=== PATIENT | female | born 1965 | race Caucasian/White ===

== ENCOUNTER 2020-04-16 14:25 | Emergency (ER) | payer MEDICAID, SELFPAY ==
[2020-04-16 14:39] VITALS: BP 191/98; PULSE 78; RESP 18; TEMP 36.1; O2SAT 97; BMI 39.6
--- NOTE | 2020-04-16 14:46 | XR_ITS ---
EXAMINATION: XR CHEST CLINICAL INFORMATION: Cough, fever COMPARISON: 03/15/2019 TECHNIQUE: Frontal view of the chest was obtained. FINDINGS: Lung volumes are slightly decreased from the prior study. There is subtly increased prominence to the pulmonary interstitium. No focal consolidation or mass. Normal heart size. Tortuous aorta. Degenerative changes of the shoulders and spine. XR/XR chest 1V IMPRESSION: There is subtly increased prominence to the pulmonary interstitium compared to the prior study. Although this could be bronchovascular crowding due to low lung volumes, subtle interstitial pneumonitis could be considered in the appropriate clinical setting.
--- NOTE | 2020-04-16 15:05 | ED.URI ---
HPI - URI/Sore Throat General Chief Complaint: Upper Respiratory Symptoms Stated Complaint: covid symptoms Time Seen by Provider: 04/16/20 14:45 Source: patient Mode of arrival: ambulatory Limitations: no limitations History of Present Illness HPI Narrative: 54 y/o female with history of HIV, hepatitis C, fibromyalgia, and HTN who presents with 5 days of dry cough and intermittent fevers. She states the cough is keeping her up at night. She has been taking cough syrup and using an albuterol inhaler without improvement. She states the symptoms started the day after she was outside in the cold rain. She thinks she has the flu. Her grandson had similar symptoms but is now much better. He was tested for COVID and was negative. She denies shortness of breath, difficulty breathing, chest pain, hemoptysis, abd pain, N/V, urinary symptoms. MD elicited complaint: fever and cough Pertinent past history: HIV Onset (ago): day(s) (5) Consistency: intermittent Severity: severe Able to tolerate fluids by mouth: Yes Exacerbating factors: nothing Relieving factors: nothing Context: sick contacts Associated symptoms: fever, chills, headache, sore throat and cough Treatments prior to arrival: none Related Data Previous Rx's Medication Instructions Recorded azithromycin [Zithromax Z-Cruz] See Rx Instructions .ROUTE 04/16/20 .COMPLEX #6 tab hydrocodone-homatropine 5 ml PO Q4-6H PRN #60 ml 04/16/20 prednisone 40 mg PO DAILY #10 tab 04/16/20 Allergies Allergy/AdvReac Type Severity Reaction Status Date / Time buspirone [From BUSPAR] Allergy Intermediate TACHYCARDIA Unverified 01/13/20 15:26 fluoxetine [From PROZAC] Allergy Intermediate FACIAL Unverified 01/13/20 15:26 NEURALGIA meloxicam Allergy Unknown Hives Verified 02/14/20 09:03 Review of Systems Review of Systems: Constitutional: + Fever, + Chills ENT/Mouth: No sore throat, No Rhinorrhea, No Swallowing Difficulty Eyes: No Eye Pain, No Swelling, No Redness Cardiovascular: No Chest Pain, No SOB, No Orthopnea, No Edema Respiratory: + Cough, No Sputum, + Wheezing, No dyspnea Gastrointestinal: No Nausea, No Vomiting, No Diarrhea, No abdominal Pain Genitourinary: No Dysuria, No Urinary Frequency, No Hematuria Musculoskeletal: No joint pain, + Myalgias Skin: No Skin Lesions, No rash Neuro: No Weakness, No Numbness, No Dizziness, + Headache Psych: No Anxiety/Panic, No Depression Heme/Lymph: No Bruising, No Lymphadenopathy Endocrine: No Polyuria, No Polydipsia PMFSH Past Medical History Attestation statement: The following information was validated with the patient. Medical History Depression HIV (human immunodeficiency virus infection) Hypercholesteremia Hypertension Social History Social History Advance Directives: No Advance Directives Information Provided: Yes Physical Exam Vital Signs: Vital Signs: Last Vital Signs Temp 97.0 F 04/16/20 14:39 Pulse 78 04/16/20 14:39 Resp 18 04/16/20 14:39 BP 191/98 H 04/16/20 14:39 Pulse Ox 97 04/16/20 14:39 Body Mass Index 39.6 Appearance: Alert. Oriented X3. No acute distress. Eyes: Pupils equal, round and reactive to light. ENT: Pharynx normal. Neck: Normal inspection. Neck supple. CVS: Normal heart rate and rhythm. Pulses normal. Respiratory: No respiratory distress. Coarse throughout with end expiratory wheeze in RML. No rhonchi Abdomen: Soft and nontender. +BS x4 Skin: Skin warm and dry. Normal skin color. Normal skin turgor. No rashes. Extremities: No lower extremity edema. Neuro: Oriented X 3. No motor deficit. No sensory deficit. Course Course Course Narrative: 54 y/o female with hx HIV on HAART presenting with intermittent fevers and non-productive cough x5 days. +sick contact who was found to be COVID negative. No hypoxia or resp distress but lung sounds coarse with mild wheeze, no hx COPD or asthma. Will check CXR and give dose of prednisone and anti-tussive now. Will get resp panel. Reevaluation(s) Reevaluation #1: Resp panel negative. Will treat for acute bronchitis. Stable for d/c with plan to f/u with PCP this week. MDM - URI/Sore Throat Lab Data Labs: Lab Results 04/16/20 Range/Units 15:11 Coronavirus (PCR) NEGATIVE (Negative) Influenza Type A (PCR) NEGATIVE (Negative) Influenza Type B (PCR) NEGATIVE (Negative) RSV RNA Qual (PCR) NEGATIVE (Negative) Discharge Plan Discharge Clinical Impression: Bronchitis Patient Disposition: Home, Self-Care Instructions: Acute Bronchitis (ED) Additional Instructions: You were tested for COVID-19, Influenza and RSV - all were NEGATIVE. You are being treated for bronchitis which is an inflammation of the airways. Take the medications as prescribed. Do not start taking the prednisone until tomorrow, you were given your 1st dose while in the ER today. Continue to use your albuterol inhaler as needed for wheezing. Follow up with your doctor this week. If you symptoms worsen of if you develop difficulty breathing, chest pain or any other concerning symptom call 911 or come back to the ER for further evaluation. Prescriptions: New azithromycin [Zithromax Z-Cruz] 250 mg tablet See Rx Instructions .ROUTE .COMPLEX Qty: 6 RF: 0 prednisone 20 mg tablet 40 mg PO DAILY Qty: 10 RF: 0 hydrocodone-homatropine 5-1.5 mg/5 mL syrup 5 ml PO Q4-6H PRN (Reason: cough) Qty: 60 RF: 0
[2020-04-16] MEDS: HYDROcodone/Homat 5/1.5/5 ML 5 ML SYRUP PO (15:58)
[2020-04-16] MEDS: predniSONE 20 MG TABLET 40 MG PO (15:58)
--- NOTE | 2020-04-16 15:59 | PC.NURSE ---
pt medicated per order
[2020-04-16 16:01] LABS: Influenza A PCR NEGATIVE (Negative); Influenza B PCR NEGATIVE (Negative); Resp Syncy Virus RNA Qual PCR NEGATIVE (Negative); SARS COV2 PCR INHOUSE NEGATIVE (Negative)
== END 2020-04-16 16:59 | disposition home or self-care (01) ==
PROVIDERS: Physician Assistant; Emergency Provider Emergency Medicine; PCP Family Medicine
DX: J20.9 Acute bronchitis, unspecified (principal); Z20.828 Contact with and (suspected) exposure to other viral communicable diseases; I10 Essential (primary) hypertension; B20 Human immunodeficiency virus [HIV] disease; B19.20 Unspecified viral hepatitis C without hepatic coma
CPT/HCPCS: 0241U; 71045; 99283

== ENCOUNTER 2020-11-23 11:41 | Outpatient (REF) | payer MEDICAID, SELFPAY ==
--- NOTE | ~2020-11-23 | XR_ITS ---
EXAMINATION: 1. RIGHT ANKLE. 2. RIGHT FOOT. CLINICAL INFORMATION: Pain in the ankle. Pain in the foot. COMPARISON: Right foot February 25, 2019 TECHNIQUE: 1. Right ankle. 3 views 2. Right foot. 3 views FINDINGS: 1. Right ankle. No fracture or dislocation. Ankle mortise is congruent. There are 2 small ossified bone densities inferior to the lateral malleolus which are chronic. 2. Right foot. Prominent calcaneal spur measuring about 1 cm. There are 2 orthopedic screws in the head of the second metatarsal. No acute abdomen only. No fracture or bone destruction. No focal bone lesion or abnormal periosteal reaction. Joint spaces are normal. XR/XR foot RT min 3V IMPRESSION: 1. Right ankle. Normal right ankle. 2. Right foot. Prominent calcaneal spur. Postop changes head of second metatarsal. No acute abnormality of the right foot.
--- NOTE | ~2020-11-23 | XR_ITS ---
EXAMINATION: 1. RIGHT ANKLE. 2. RIGHT FOOT. CLINICAL INFORMATION: Pain in the ankle. Pain in the foot. COMPARISON: Right foot February 25, 2019 TECHNIQUE: 1. Right ankle. 3 views 2. Right foot. 3 views FINDINGS: 1. Right ankle. No fracture or dislocation. Ankle mortise is congruent. There are 2 small ossified bone densities inferior to the lateral malleolus which are chronic. 2. Right foot. Prominent calcaneal spur measuring about 1 cm. There are 2 orthopedic screws in the head of the second metatarsal. No acute abdomen only. No fracture or bone destruction. No focal bone lesion or abnormal periosteal reaction. Joint spaces are normal. XR/XR ankle RT min 3V IMPRESSION: 1. Right ankle. Normal right ankle. 2. Right foot. Prominent calcaneal spur. Postop changes head of second metatarsal. No acute abnormality of the right foot.
== END 2020-11-23 11:42 | disposition home or self-care (01) ==
LOC: HO.XRAY 11:41
PROVIDERS: Absent Provider Nurse Practitioner Family; PCP Nurse Practitioner Family; Visit Provider Emergency Medicine
DX: M25.571 Pain in right ankle and joints of right foot (principal); M79.671 Pain in right foot
CPT/HCPCS: 73610; 73630

== ENCOUNTER 2020-11-25 09:25 | Emergency (ER) | payer MEDICAID, SELFPAY ==
[2020-11-25 09:32] VITALS: BP 139/45; PULSE 72; RESP 12; TEMP 36.9; O2SAT 98; BMI 36.8
--- NOTE | 2020-11-25 09:51 | ED.LOWEXIN ---
HPI - Extremity Injury (Lower) General Chief Complaint: Extremity Injury, Lower Stated Complaint: heel injury Time Seen by Provider: 11/25/20 09:51 Source: patient and medical interpreter Mode of arrival: ambulatory Limitations: no limitations History of Present Illness HPI Narrative: 55 yo female R heel pain has calcaneal spur noted on xray 11/23 comes in with pain with walking complaint: other (heel pain) Onset (ago): week(s) (1) Injury: Right: foot Place: home Severity: moderate Relieving factors: nothing Exacerbating factors: weight bearing, movement and palpation Context: other (no trauma ) Associated symptoms: able to partially bear weight Other symptoms: none Treatments prior to arrival: other (diclofenac topical ) Related Data Previous Rx's Medication Instructions Recorded azithromycin 250 mg tablet See Rx Instructions .ROUTE 04/16/20 (Zithromax Z-Cruz) .COMPLEX #6 tab hydrocodone-homatropine 5 mg-1.5 5 ml PO Q4-6H PRN #60 ml 04/16/20 mg/5 mL oral syrup prednisone 20 mg tablet 40 mg PO DAILY #10 tab 04/16/20 hydrocodone 5 mg-acetaminophen 325 1 tab PO Q6H PRN #8 tab 11/25/20 mg tablet prednisone 20 mg tablet 40 mg PO DAILY 3 Days #6 tab 11/25/20 Allergies Allergy/AdvReac Type Severity Reaction Status Date / Time buspirone [From BUSPAR] Allergy Intermediate TACHYCARDIA Unverified 01/13/20 15:26 fluoxetine [From PROZAC] Allergy Intermediate FACIAL Unverified 01/13/20 15:26 NEURALGIA meloxicam Allergy Unknown Hives Verified 02/14/20 09:03 Review of Systems Review of Systems: Constitutional : No Fever, No Chills ENT/Mouth : No Ear Pain, No Hoarseness Eyes: No Eye Pain, No Swelling, No Redness Cardiovascular : No Chest Pain, No SOB Respiratory : No Cough, No Dyspnea Gastrointestinal : No Nausea, No Vomiting, No Diarrhea Genitourinary : No Dysuria, No Hematuria Musculoskeletal : positive joint pain, No Myalgias, No Joint Swelling Skin : No Skin lacerations, No rash Neuro : No Weakness, No Numbness PMFSH Past Medical History Attestation statement: The following information was validated with the patient. Medical History Depression HIV (human immunodeficiency virus infection) Hypercholesteremia Hypertension Social History Social History (Updated 11/25/20 @ 10:02 by Alexa Fernandez DO) Patient Tobacco Use Status: Current everyday Tobacco user Use of substances other than those prescribed or required for medical reasons: No Physical Exam Vital Signs: Vital Signs: Last Vital Signs Temp 98.4 F 11/25/20 09:32 Pulse 72 11/25/20 09:32 Resp 12 11/25/20 09:32 BP 139/45 L 11/25/20 09:32 Pulse Ox 98 11/25/20 09:32 Body Mass Index 36.8 Appearance: Alert. Oriented X3. No acute distress. Eyes: Pupils equal, round and reactive to light. ENT: Pharynx normal. Neck: Normal inspection. Neck supple. CVS: Normal heart rate and rhythm. Pulses normal. Respiratory: No respiratory distress. Breath sounds normal. Abdomen: Soft and nontender. Skin: Skin warm and dry. Normal skin color. Normal skin turgor. Extremities: No lower extremity edema. R foot NV intact, skin intact, pos ttp with mild swelling on calcaneal area Neuro: Oriented X 3. No motor deficit. No sensory deficit. Procedures Orthopedic Splinting/Casting Injury #1: Side: right Lower Extremity Injury Location: foot Lower Extremity Immobilizer: boot orthosis MDM - Extremity Injury (Lower) MDM Narrative Medical decision making narrative: 55 yo female R heel pain has calcaneal spur noted on xray 11/23 comes in with pain with walking at this time will place in padded walking boot for comfort and start on oral medications for pain, refer to ortho clinic for possible steroid injections Discharge Plan Discharge Clinical Impression: Calcaneal spur Qualifiers: Laterality: right Qualified Code(s): M77.31 - Calcaneal spur, right foot Patient Disposition: Home, Self-Care Instructions: Heel Spur (ED) Additional Instructions: return to ED for any worsening symptoms or concerns wear walking boot for comfort as needed no longer than 7 days Prescriptions: New hydrocodone-acetaminophen 5-325 mg tablet 1 tab PO Q6H PRN (Reason: pain) Qty: 8 RF: 0 prednisone 20 mg tablet 40 mg PO DAILY 3 Days Qty: 6 RF: 0 No Action azithromycin [Zithromax Z-Cruz] 250 mg tablet See Rx Instructions .ROUTE .COMPLEX Qty: 6 RF: 0 prednisone 20 mg tablet 40 mg PO DAILY Qty: 10 RF: 0 hydrocodone-homatropine 5-1.5 mg/5 mL syrup 5 ml PO Q4-6H PRN (Reason: cough) Qty: 60 RF: 0 Referrals: Zoraida Sanderson PA-C [Physician Mobile [employer] Operator] - 1 week Print Language: Palauan
[2020-11-25] MEDS: HYDROcodone Bit/Acetam 5/325 TABLET 1 TAB PO (10:03)
== END 2020-11-25 10:47 | disposition home or self-care (01) ==
LOC: HO.ED 10:18
PROVIDERS: Emergency Provider Emergency Medicine
DX: M77.31 Calcaneal spur, right foot (principal); M79.671 Pain in right foot; B20 Human immunodeficiency virus [HIV] disease; I10 Essential (primary) hypertension; E78.00 Pure hypercholesterolemia, unspecified; F17.210 Nicotine dependence, cigarettes, uncomplicated
CPT/HCPCS: 99283; 99284

== ENCOUNTER 2021-01-26 09:55 | Outpatient (REF) | payer MEDICAID, SELFPAY ==
[2021-01-26 17:17] LABS: Urine Cytology See Pathology rpt
== END 2021-01-26 09:56 | disposition home or self-care (01) ==
LOC: HO.LAB 09:55
DX: R31.29 Other microscopic hematuria (principal); R32 Unspecified urinary incontinence
CPT/HCPCS: 51798; 88112; 99202

== ENCOUNTER 2021-02-19 12:40 | Emergency (ER) | payer MEDICAID, SELFPAY ==
[2021-02-19 13:13] VITALS: BP 162/94; PULSE 77; RESP 16; TEMP 36.8; O2SAT 98; BMI 36.5
--- NOTE | 2021-02-19 14:05 | ED.GENADULT ---
HPI - General Adult General Chief complaint: General Medical Stated complaint: flu symptons Time Seen by Provider: 02/19/21 15:18 Source: patient Mode of arrival: ambulatory Limitations: no limitations History of Present Illness HPI narrative: PATIENT PRESENTS TO ED TO BE TESTED FOR COVID. PATIENT WAS EXPOSED TO COVID POSITIVE FAMILY MEMBERS OVER THE WEEKEND. PATIENT IS ASYMPTOMATIC. PATIENT STATES HER GRANDSON WAS WITH HER AND NOW HAVING SYMPTOMS. Related Data Home Medications Medication Instructions Recorded Confirmed cholecalciferol (vitamin D3) 50 50 mcg PO DAILY 01/26/21 mcg (2,000 unit) tablet tramadol 50 mg tablet 50 mg PO Q8H PRN 01/26/21 zolpidem 10 mg tablet 10 mg PO BEDTIME PRN 01/26/21 Previous Rx's Medication Instructions Recorded azithromycin 250 mg tablet See Rx Instructions .ROUTE 04/16/20 (Zithromax Z-Cruz) .COMPLEX #6 tab hydrocodone-homatropine 5 mg-1.5 5 ml PO Q4-6H PRN #60 ml 04/16/20 mg/5 mL oral syrup prednisone 20 mg tablet 40 mg PO DAILY #10 tab 04/16/20 hydrocodone 5 mg-acetaminophen 325 1 tab PO Q6H PRN #8 tab 11/25/20 mg tablet prednisone 20 mg tablet 40 mg PO DAILY 3 Days #6 tab 11/25/20 terazosin 1 mg capsule 1 mg PO BEDTIME 30 Days #30 cap 01/26/21 Allergies Allergy/AdvReac Type Severity Reaction Status Date / Time buspirone [From BUSPAR] Allergy Intermediate TACHYCARDIA Verified 01/26/21 10:11 fluoxetine [From PROZAC] Allergy Intermediate FACIAL Verified 01/26/21 10:11 NEURALGIA meloxicam Allergy Unknown Hives Verified 01/26/21 10:11 Review of Systems Review of Systems: Yes all other systems are reviewed and are negative Constitutional: Constitutional: Reports as per HPI and Reports no additional constitutional complaints Eyes: Eyes: Reports as per HPI and Reports no additional eye complaints ENT: Reports system reviewed and no additional complaints, except as documented and Reports as per HPI Cardiovascular: Cardiovascular: Reports as per HPI and Reports no additional cardiovascular complaints Respiratory: Respiratory: Reports as per HPI and Reports no additional respiratory complaints Gastrointestinal: Gastrointestinal: Reports as per HPI and Reports no additional gastrointestinal complaints Genitourinary: Genitourinary: Reports no additional female genitourinary complaints and Reports as per HPI Musculoskeletal: Musculoskeletal: Reports no additional musculoskeletal complaints and Reports as per HPI Neurologic: Reports system reviewed and no additional complaints, except as documented and Reports as per HPI Psychiatric: Psychiatric: Reports no additional psychiatric complaints and Reports as per HPI [facility] Past Medical History Medical History Depression HIV (human immunodeficiency virus infection) Hypercholesteremia Hypertension Urinary incontinence Social History Social History Patient Tobacco Use Status: Current everyday Tobacco user Advance Directives: Yes Advance Directives Information Provided: Yes Advance Directives on File: No Patient : No Physical Exam Vital Signs: Vital Signs: Last Vital Signs Temp 98.2 F 02/19/21 13:13 Pulse 77 02/19/21 13:13 Resp 16 02/19/21 13:13 BP 162/94 H 02/19/21 13:13 Pulse Ox 98 02/19/21 13:13 Body Mass Index 36.5 Const: General: cooperative, healthy appearing, comfortable, no acute distress, well developed, alert, awake and Physically active Orientation/consciousness: oriented to time and patient oriented x3 HENMT: Head: Yes normal to inspection, Yes No palpable skull fracture present, Yes normocephalic, Yes atraumatic and No abrasion Eyes: General: appearance normal, both eyes and all related structures Neck: Neck: Yes normal visual inspection, Yes full ROM, Yes no lymphadenopathy, Yes no meningeal signs, Yes trachea midline, Yes supple and No tender Chest: Chest palpation & inspection: normal inspection of the chest and normal palpation of entire chest wall Resp: Effort & Inspection: normal respiratory effort and able to speak in complete sentences Auscultation: clear to auscultation bilaterally Cardio: Jugular venous distension: no JVD Heart sounds: S1 normal heart sound present and S2 normal heart sound present GI: Inspection: Yes normal to inspection and No abdominal wall ecchymosis Palpation (GI): Soft to palpation, not firm, nontender, no guarding and not rigid : General: No CVA tenderness and Yes no CVA tenderness Back/Spine/Pelvis: Back: no CVA tenderness, No CVA tenderness and No back tenderness Skin: General skin exam: no rashes or lesions noted and elasticity normal Neuro: General: oriented to time, patient oriented x3, gait normal, no meningeal signs and CN's II-XI intact bilaterally Cranial nerves: Yes CN's II-XII intact bilaterally Extrem: General: Yes normal to inspection and Yes full ROM Psych: Appearance: grossly normal, well kempt and not disheveled Course Course Course Narrative: PATIENT WILL HAVE COVID SWAB. Reevaluation(s) Reevaluation #1: COVID swab, influenza, RSV negative Time: 15:18 Medical Decision Making MDM Narrative Medical decision making narrative: Normal exam Lab Data Labs: Lab Results 02/19/21 Range/Units 13:39 Coronavirus (PCR) NEGATIVE (Negative) Influenza Type A (PCR) NEGATIVE (Negative) Influenza Type B (PCR) NEGATIVE (Negative) RSV RNA Qual (PCR) NEGATIVE (Negative) Discharge Plan Discharge Clinical Impression: Normal exam Patient Disposition: Home, Self-Care Instructions: Normal Exam (ED) Additional Instructions: Return to the ED immediately for any chest pain, shortness of breath, weakness, dizziness, or any other concerning symptoms. Prescriptions: No Action azithromycin [Zithromax Z-Cruz] 250 mg tablet See Rx Instructions .ROUTE .COMPLEX Qty: 6 RF: 0 prednisone 20 mg tablet 40 mg PO DAILY Qty: 10 RF: 0 hydrocodone-homatropine 5-1.5 mg/5 mL syrup 5 ml PO Q4-6H PRN (Reason: cough) Qty: 60 RF: 0 hydrocodone-acetaminophen 5-325 mg tablet 1 tab PO Q6H PRN (Reason: pain) Qty: 8 RF: 0 prednisone 20 mg tablet 40 mg PO DAILY 3 Days Qty: 6 RF: 0 terazosin 1 mg capsule 1 mg PO BEDTIME 30 Days Qty: 30 RF: 3 Interventions: ED Discharge Assessment Last Done: 02/19/21 15:32 Discharge Date/Time: 02/19/21 15:32 Print Language: Citizen [place]
[2021-02-19 15:07] LABS: Influenza A PCR NEGATIVE (Negative); Influenza B PCR NEGATIVE (Negative); Resp Syncy Virus RNA Qual PCR NEGATIVE (Negative); SARS COV2 PCR INHOUSE NEGATIVE (Negative)
== END 2021-02-19 15:32 | disposition home or self-care (01) ==
PROVIDERS: Physician Assistant; Emergency Provider Emergency Medicine
DX: Z71.1 Person with feared health complaint in whom no diagnosis is made (principal); Z20.822 Contact with and (suspected) exposure to COVID-19
CPT/HCPCS: 0241U; 36415; 99283

== ENCOUNTER → 2021-09-03 11:18 | Outpatient (BNVA) | payer MEDICAID, SELFPAY | PROVIDERS: PCP Family Medicine; Referring Provider Family Medicine; Visit Provider Internal Medicine Gastroenterology | DX: R79.89 Other specified abnormal findings of blood chemistry (principal); K74.60 Unspecified cirrhosis of liver | CPT/HCPCS: 99202 ==

== ENCOUNTER 2021-09-27 09:10 | Outpatient (REF) | payer MEDICAID, SELFPAY ==
[2021-09-27 09:46] LABS: MANUAL DIFF FLAG NO
[2021-09-27 10:07] LABS: Basophils Percent Auto 0.3 % (0-2); Eosinophils Absolute Auto 0.1 X10*3/uL (0.0-0.4); Eosinophils Percent Auto 1.6 % (0-4); Hematocrit 41.6 % (37.0-47.0); Hemoglobin 14.2 g/dl (12.0-16.0); Imm Gran Abs Auto 0.02 X10*3/uL (0.00-0.03); Imm Gran Pct Auto 0.3 % (0.0-0.4); Lymphocytes Absolute Auto 2.3 X10*3/uL (1.2-4.9); Lymphocytes Percent Auto 31.1 % (20-40); Mean Corpuscular HGB Conc 34.1 g/dl (31.0-35.0); Mean Corpuscular Hemoglobin 29.7 pg (27.0-33.0); Mean Platelet Volume 11.8 fL (9.4-12.3); Monocytes Absolute Auto 0.6 X10*3/uL (0.1-1.2); Monocytes Percent Auto 7.6 % (2-11); Neutrophils Absolute Auto 4.4 x10*3/uL (2.0-8.3); Neutrophils Percent Auto 59.1 % (45-73); Platelet Count 193 X10*3/uL (160-400); Red Blood Count 4.78 X10*6/uL (4.20-5.50); Red Cell Distribution Width 12.6 % (11.0-16.0); White Blood Count 7.4 X10*3/uL (4.8-10.8)
[2021-09-27 10:09] LABS: Prothrombin Time 11.4 SEC (9.9-13.0)
[2021-09-27 10:28] LABS: Alanine Aminotransferase 15 U/L (0-31); Albumin Level 4.3 g/dL (3.5-5.0); Alkaline Phosphatase 141 U/L (39-117); Anion Gap 11 (12-20); Aspartate Amino Transferase 16 U/L (5-31); Bilirubin Total 0.4 mg/dL (0.0-1.0); Blood Urea Nitrogen 13 mg/dL (9-16); Calcium 9.8 mg/dL (8.4-10.2); Carbon Dioxide 25 mmol/L (22-29); Chloride 107 mmol/L (96-108); Estimated Glomerular Filt Rate > 60; Glucose Random 95 mg/dL (60-115); Sodium 139 mmol/L (135-145); Total Protein 7.7 g/dL (6.5-8.0)
[2021-09-27 10:49] LABS: Ferritin 217 ng/mL (10-250); TSH reflex Free T4 3.54 uIU/mL (0.32-4.0); Vitamin D 25-OH Total 16.9 ng/mL (>30)
[2021-09-27 10:50] LABS: HBS Num1 3.84 mIU/mL (0-7.99); HBc Num1 0.06 S/CO (0.00-0.79); HBsAGNum1 0.22 S/CO (0.00-0.99); Hepatitis B Core Antibody Nonreactive (Nonreactive); Hepatitis B Surface Antigen Negative (Negative); ~HepC Num1 11.06 S/CO (0.00-0.79); ~Hepatitis B Surface Antibody NONREACTIVE (Nonreactive); ~Hepatitis C Antibody Reactive (Nonreactive)
[2021-09-27 11:02] LABS: Folate 13.1 ng/mL (> or = 4.0); Vitamin B12 444 pg/mL (200-900)
[2021-09-28 08:09] LABS: Hepatitis A Antibody IgM 0.15 Index (0-0.79); ~Hepatitis A Antibody IgM Nonreactive (Nonreactive)
[2021-09-29 14:22] LABS: Immunoglobulin G 1386 mg/dL (600-1640)
[2021-09-29 14:26] LABS: Alpha 1 Anti-trypsin 167 mg/dL (83-199); Ceruloplasmin 36 mg/dL (18-53)
[2021-09-30 12:06] LABS: HCV Log PCR <1.18 NOT DETECTED Log IU/mL (NOT DETECTED); HepC Viral Load <15 NOT DETECTED IU/mL (NOT DETECTED)
[2021-10-01 09:47] LABS: Anti Nuclear Antibody Screen NEGATIVE (NEGATIVE)
[2021-10-01 14:21] LABS: Liver Kidney Microsomal Ab <=20.0 U (<=20.0); Smooth Muscle Antibody <20 U (<20)
[2021-10-01 16:31] LABS: Vitamin K1 186 pg/mL (130-1500)
[2021-10-01 20:26] LABS: Vitamin B5 (Pantothenic Acid) <40 ng/mL (<275)
[2021-10-02 00:57] LABS: Zinc 88 mcg/dL (60-130)
[2021-10-02 10:26] LABS: Mitochondrial Antibodies NEGATIVE (NEGATIVE)
[2021-10-02 15:11] LABS: Vitamin C 0.3 mg/dL (0.3-2.7)
[2021-10-02 15:46] LABS: Nicotinamide <20 ng/mL; Vit B3 - Nicotinic Acid <20 ng/mL
[2021-10-03 01:52] LABS: Alpha-Tocopherol 10.7 mg/L (5.7-19.9); Beta-Gamma Tocopherol 1.1 mg/L (<=4.3); FIB-ALT 14 U/L (6-29); FIB-Alpha-2-Macroglobulin 355 mg/dL (106-279); FIB-Apolipoprotein A1 166 mg/dL (101-198); FIB-GGT 25 U/L (3-70); FIB-Haptoglobin 161 mg/dL (43-212); FIB-Total Bilirubin 0.3 mg/dL (0.2-1.2); Liver Fibrosis Score 0.25; Liver Fibrosis Stage F0-F1; Nec Inflam Act Grade A0; Nec Inflam Act Score 0.04
[2021-10-03 02:01] LABS: Vitamin A 28 mcg/dL (38-98)
[2021-10-04 13:11] LABS: Soluble Liver Ag Autoantibody <20.1 U (0.0-20.0)
[2021-10-04 14:02] LABS: Vitamin B6 5.1 ng/mL (2.1-21.7)
[2021-10-04 23:01] LABS: Gliadin Deamidated IgA Ab <1.0 U/mL; Gliadin Deamidated IgG Ab <1.0 U/mL; Transglutaminase Ab IgG <1.0 U/mL; Transglutaminase IgA <1.0 U/mL
== END 2021-09-27 09:11 | disposition home or self-care (01) ==
LOC: HO.LAB 09:10
PROVIDERS: Visit Provider Internal Medicine Gastroenterology
DX: R10.33 Periumbilical pain (principal); K74.60 Unspecified cirrhosis of liver; R79.89 Other specified abnormal findings of blood chemistry; K75.81 Nonalcoholic steatohepatitis (NASH); R79.82 Elevated C-reactive protein (CRP); K52.839 Microscopic colitis, unspecified; G89.29 Other chronic pain
CPT/HCPCS: 36415; 80053; 81596; 82103; 82180; 82306; 82390; 82607; 82728; 82746; 82784; 83520; 84207; 84443; 84446; 84590; 84591; 84597; 84630; 85025; 85610; 86015; 86038; 86039; 86255; 86256; 86258; 86364; 86376; 86704; 86706; 86709; 86803; 87340; 87522

== ENCOUNTER 2021-10-04 10:54 | Outpatient (REF) | payer MEDICAID, SELFPAY ==
--- NOTE | ~2021-10-04 | US_ITS ---
EXAMINATION: US COMPLETE ABDOMEN WITH LIVER ELASTOGRAPHY CLINICAL INFORMATION: Cirrhosis COMPARISON: Previous abdominal ultrasound most recent December [address] of the abdomen and pelvis March 2018 TECHNIQUE: Real-time imaging of the abdominal viscera. Noninvasive ultrasound liver fibrosis assessment is performed using Jh ElastPQ point quantification shear wave elastography (2D-SWE) with a C5-2 MHz transducer. Multiple elastography samples are obtained. FINDINGS: PANCREAS: The visualized pancreatic head and body are normal in appearance. The remainder of the pancreas is obscured from visualization by the overlying bowel gas. ABDOMINAL AORTA: The proximal, middle, and distal aortic segments are normal in caliber. INFERIOR VENA CAVA: Visualized portions are normal. LIVER: The contour of the liver is slightly irregular or scalloped suggestive of mild cirrhotic change. Liver echotexture is normal. No focal liver lesion or biliary duct dilatation. The right lobe measures 15.8 cm in length. The left lobe measures 12.4 cm in length. Portal flow is normal/hepatopedal Shear wave liver elastography median stiffness is 2 m/s (reference: normal median stiffness is 1.3 m/s or less). IQR/median stiffness to assess sampling precision is 0.06 (reference: good quality data set is IQR/median stiffness of 0.15 or less). GALLBLADDER: Surgically removed COMMON BILE DUCT: Normal in caliber measuring 0.9 cm in diameter. RIGHT KIDNEY: Normal. No hydronephrosis. No renal calculi or focal parenchymal lesions. The kidney measures 9.7 cm in maximum dimension. LEFT KIDNEY: Normal. No hydronephrosis. No renal calculi or focal parenchymal lesions. The kidney measures 10.8 cm in maximum dimension. SPLEEN: Normal. The spleen measures 9.6 cm in maximum dimension. FREE FLUID: None. US/US abdomen comp w elastography IMPRESSION: 1. Impression: Mild cirrhotic changes of the liver. Limited visualization of the tail of the pancreas. 2. Liver elastography: Adequate liver sampling. Increased liver stiffness suggestive of compensated advanced chronic liver disease but need further test for confirmation. REFERENCE: Society of Radiologists in Ultrasound Liver Stiffness Thresholds (2019): LIVER STIFFNESS THRESHOLDS: *Liver Stiffness equal or less than 1.3 m/s: High probability of being normal. *Liver Stiffness less than 1.7 m/s: In the absence of other known clinical signs, rules out compensated advanced chronic liver disease. *Liver Stiffness 1.7-2.1 m/s: Suggestive of compensated advanced chronic liver disease but need further test for confirmation. *Liver Stiffness over 2.1 m/s: Rules in compensated advanced chronic liver disease. *Liver Stiffness over 2.4 m/s: Suggestive of clinically significant portal hypertension. QUALITY OF DATA SET: *IQR/Median value equal or less than 0.15 implies a quality data set. *IQR/Median value over 0.15 implies a poor quality data set. SIGNIFICANT CHANGE FROM PRIOR EXAM: Significant change if liver stiffness measurement is 10% or greater from prior exam. OTHER CONSIDERATIONS: The stage of liver fibrosis may be overestimated in the setting of acute hepatitis, liver inflammation, elevated liver function tests, hepatic vascular congestion, obstructive cholestasis, non-fasting state, and infiltrative diseases such as amyloidosis and lymphoma. In some patients with NAFLD, the liver stiffness thresholds for compensated advanced chronic liver disease may be lower. In causes other than viral hepatitis and NAFLD, liver stiffness thresholds are not well established.
== END 2021-10-04 10:55 | disposition home or self-care (01) ==
LOC: HO.US 10:54
PROVIDERS: Visit Provider Internal Medicine Gastroenterology
DX: K74.60 Unspecified cirrhosis of liver (principal); R79.89 Other specified abnormal findings of blood chemistry
CPT/HCPCS: 76705; 76981

== ENCOUNTER 2022-02-18 23:09 | Emergency (ER) | payer MEDICAID, SELFPAY ==
--- NOTE | ~2022-02-18 | XR_ITS ---
EXAMINATION: XR HIP, RIGHT CLINICAL INFORMATION: Hip pain. Unable to ambulate. COMPARISON: 10/16/2018 TECHNIQUE: Two views of the right hip. Frontal view of the pelvis. FINDINGS: No fracture or dislocation. The hips are appropriately aligned. Moderate degenerative change of the right hip has progressed from prior. There is joint space narrowing with sclerosis and osteophyte formation. Mild degenerative changes of the left hip are similar to prior. The pelvic rim is intact. The sacroiliac joints are symmetric, and appear partially fused. The pubic symphysis is well aligned. XR/XR hip RT w PEL1V IMPRESSION: No acute fracture or malalignment. Moderate degenerative changes of the right hip, progressed from prior.
[2022-02-18 23:33] VITALS: BP 152/82; PULSE 86; O2SAT 97
[2022-02-18 23:39] VITALS: BP 139/79; PULSE 87; RESP 16; TEMP 36.8; O2SAT 96; BMI 37.0
[2022-02-19 00:04] LABS: Hematocrit 39.9 % (37.0-47.0); Hemoglobin 13.8 g/dl (12.0-16.0); Mean Corpuscular HGB Conc 34.6 g/dl (31.0-35.0); Mean Corpuscular Hemoglobin 29.7 pg (27.0-33.0); Mean Platelet Volume 11.8 fL (9.4-12.3); Platelet Count 186 X10*3/uL (160-400); Red Blood Count 4.64 X10*6/uL (4.20-5.50); Red Cell Distribution Width 12.8 % (11.0-16.0); White Blood Count 8.9 X10*3/uL (4.8-10.8)
[2022-02-19 00:26] LABS: Alanine Aminotransferase 15 U/L (0-31); Albumin Level 4.4 g/dL (3.5-5.0); Alkaline Phosphatase 145 U/L (39-117); Anion Gap 17 (12-20); Aspartate Amino Transferase 16 U/L (5-31); Bilirubin Total 0.4 mg/dL (0.0-1.0); Blood Urea Nitrogen 8 mg/dL (9-16); Calcium 9.1 mg/dL (8.4-10.2); Carbon Dioxide 21 mmol/L (22-29); Chloride 108 mmol/L (96-108); Creatinine Clr Calc Pharmacy 84.9; Estimated Glomerular Filt Rate > 60; Glucose Random 130 mg/dL (60-115); Potassium 3.5 mmol/L (3.3-5.1); Sodium 142 mmol/L (135-145); Total Protein 7.5 g/dL (6.5-8.0)
--- NOTE | 2022-02-19 01:40 | ED.EXTPRO ---
HPI - Extremity Problem General Chief complaint: Extremity Injury, Lower Stated complaint: abd pain Time Seen by Provider: 02/19/22 01:10 Source: patient Mode of arrival: ambulatory Limitations: no limitations History of Present Illness HPI Narrative: Patient noticed right groin pain since yesterday without any injury increases on ambulation no back pain no abdominal pain no fever no urinary complaints right Related Data Home Medications Medication Instructions Recorded Confirmed cholecalciferol (vitamin D3) 50 50 mcg PO DAILY 01/26/21 mcg (2,000 unit) tablet tramadol 50 mg tablet 50 mg PO Q8H PRN 01/26/21 zolpidem 10 mg tablet 10 mg PO BEDTIME PRN insomnia 01/26/21 Previous Rx's Medication Instructions Recorded azithromycin 250 mg tablet See Rx Instructions PO .COMPLEX #6 04/16/20 (Zithromax Z-Cruz) tabs hydrocodone-homatropine 5 mg-1.5 5 ml PO Q4-6H PRN cough #60 mL 04/16/20 mg/5 mL oral syrup prednisone 20 mg tablet 40 mg PO DAILY #10 tabs 04/16/20 hydrocodone 5 mg-acetaminophen 325 1 tab PO Q6H PRN pain #8 tabs 11/25/20 mg tablet prednisone 20 mg tablet 40 mg PO DAILY 3 days #6 tabs 11/25/20 terazosin 1 mg capsule 1 mg PO BEDTIME incontinence 30 01/26/21 days #30 caps diclofenac sodium 50 mg 50 mg PO BID #20 tabs 02/19/22 tablet,delayed release Allergies Allergy/AdvReac Type Severity Reaction Status Date / Time buspirone [From BUSPAR] Allergy Intermediate TACHYCARDIA Verified 09/03/21 11:28 fluoxetine [From PROZAC] Allergy Intermediate FACIAL Verified 09/03/21 11:28 NEURALGIA meloxicam Allergy Unknown Hives Verified 09/03/21 11:28 Review of Systems Review of Systems: Yes all other systems are reviewed and are negative PMFSH Past Medical History Medical History Depression HIV (human immunodeficiency virus infection) Hypercholesteremia Hypertension Urinary incontinence Surgical History Hx of colonoscopy Family History Family History Mother HTN (hypertension) High cholesterol Sister HTN (hypertension) Social History Social History Alcohol intake: never Patient Tobacco Use Status: Current everyday Tobacco user Smoked in Last 30 Days: Yes Use of substances other than those prescribed or required for medical reasons: No Advance Directives: No Physical Exam Vital Signs: Vital Signs: Last Vital Signs Temp 98.3 F 02/18/22 23:39 Pulse 88 02/19/22 02:11 Resp 18 02/19/22 02:11 BP 184/94 H 02/19/22 02:11 Pulse Ox 97 02/19/22 02:11 O2 Del Method 02/19/22 02:11 BMI result Body Mass Index 37.0 Appearance: Alert. Oriented X3. No acute distress. Neck: Normal inspection. Neck supple. CVS: Normal heart rate and rhythm. Pulses normal. Respiratory: No respiratory distress. Equal air entry bilateral, Abdomen: Soft and nontender. Bowel sounds are present, no mass palpable, no CVA tenderness Skin: Skin warm and dry. Normal skin color. Normal skin turgor. Extremities: No lower extremity edema. No calf tenderness tenderness in right groin area increases on adduction and flexion of right lower extremity Neuro: Oriented X 3. No motor deficit. No sensory deficit.N MDM - Extremity (Nontraumatic) MDM Narrative Medical decision making narrative: Patient clinically with right groin strain will discharge patient home on diclofenac sodium patient already has tramadol and Flexeril at home labs are stable Lab Data Attestation: I reviewed the patient's lab results. Result diagrams: 02/18/22 23:58 02/18/22 23:58 Labs: Lab Results 02/18/22 02/18/22 Range/Units 23:58 23:58 WBC 8.9 (4.8-10.8) X10*3/uL RBC 4.64 (4.20-5.50) X10*6/uL Hgb 13.8 (12.0-16.0) g/dl Hct 39.9 (37.0-47.0) % MCV 86.0 (80.0-98.0) fL MCH 29.7 (27.0-33.0) pg MCHC 34.6 (31.0-35.0) g/dl RDW 12.8 (11.0-16.0) % Plt Count 186 (160-400) X10*3/uL MPV 11.8 (9.4-12.3) fL Absolute Nucleated RBC 0.000 (0.0-0.012) X10*3/uL Nucleated RBC % (auto) 0.0 (0.0-0.2) /100WBC Sodium 142 (135-145) mmol/L Potassium 3.5 (3.3-5.1) mmol/L Chloride 108 (96-108) mmol/L Carbon Dioxide 21 L (22-29) mmol/L Anion Gap 17 (12-20) BUN 8 L (9-16) mg/dL Creatinine 0.81 (0.5-1.4) mg/dL Estim Creat Clear Calc 84.9 Estimated GFR > 60 Random Glucose 130 H (60-115) mg/dL Calcium 9.1 D (8.4-10.2) mg/dL Total Bilirubin 0.4 (0.0-1.0) mg/dL AST 16 (5-31) U/L ALT 15 (0-31) U/L Alkaline Phosphatase 145 H (39-117) U/L Total Protein 7.5 (6.5-8.0) g/dL Albumin 4.4 (3.5-5.0) g/dL Discharge Plan Discharge Clinical Impression: Strain of right groin Patient Disposition: Home, Self-Care Instructions: Groin Strain (ED) Additional Instructions: Continue pain medication Start taking diclofenac sodium for increased pain and Rest your right thigh Prescriptions: New diclofenac sodium 50 mg tablet,delayed release (DR/EC) 50 mg PO BID Qty: 20 0RF No Action azithromycin [Zithromax Z-Cruz] 250 mg tablet See Rx Instructions .ROUTE .COMPLEX Qty: 6 0RF Rx Instructions: take 500 mg today (day 1), then 250 mg for 4 days (days 2-5) prednisone 20 mg tablet 40 mg PO DAILY Qty: 10 0RF hydrocodone-homatropine 5-1.5 mg/5 mL syrup 5 ml PO Q4-6H PRN (Reason: cough) Qty: 60 0RF hydrocodone-acetaminophen 5-325 mg tablet 1 tab PO Q6H PRN (Reason: pain) Qty: 8 0RF prednisone 20 mg tablet 40 mg PO DAILY 3 Days Qty: 6 0RF terazosin 1 mg capsule 1 mg PO BEDTIME 30 Days Qty: 30 3RF Interventions: ED Discharge Assessment Last Done: 02/19/22 02:16 Discharge Date/Time: 02/19/22 02:17
[2022-02-19] MEDS: oxyCODONE HCl Immed Release 5 MG TABLET 10 MG PO (02:09)
[2022-02-19 02:11] VITALS: BP 184/94; PULSE 88; RESP 18; O2SAT 97
--- NOTE | 2022-02-19 02:15 | PC.NURSE ---
pt pwd and ambulatory at discharge. pt medicated according to MAR prior to discharge. pt provided with discharge packet. pt verbalized understanding of discharge plan
== END 2022-02-19 02:17 | disposition home or self-care (01) ==
PROVIDERS: Emergency Provider Internal Medicine
DX: R10.31 Right lower quadrant pain (principal); M25.551 Pain in right hip; F17.200 Nicotine dependence, unspecified, uncomplicated; Z71.6 Tobacco abuse counseling; Z79.899 Other long term (current) drug therapy
CPT/HCPCS: 36415; 73502; 80053; 85027; 99283; 99284

== ENCOUNTER → 2022-03-04 11:03 | Outpatient (BNVA) | payer MEDICAID, SELFPAY | PROVIDERS: PCP Registered Nurse Community Health; Visit Provider Internal Medicine Gastroenterology | DX: K74.60 Unspecified cirrhosis of liver (principal); Z86.19 Personal history of other infectious and parasitic diseases | CPT/HCPCS: 99212 ==

== ENCOUNTER 2022-03-09 14:49 | Emergency (ER) | payer MEDICAID, SELFPAY ==
--- NOTE | ~2022-03-09 | XR_ITS ---
EXAMINATION: XR chest 2V CLINICAL INFORMATION: Cough COMPARISON: No prior chest x-ray available in our system for comparison at the time of this dictation. TECHNIQUE: XR chest 2V Lungs and Zeinab: No radiographic evidence of acute cardiopulmonary disease. Pleura: Normal. Costophrenic angles are sharp. No pneumothorax. Heart: The heart is normal in size. Mediastinum: The mediastinum is within normal limits.. Bones: Skeletal structures included are normal for patient's age. XR/XR chest 2V IMPRESSION: No radiographic evidence of acute cardiopulmonary disease.
[2022-03-09 16:12] VITALS: BP 148/86; PULSE 71; RESP 16; TEMP 36.1; O2SAT 99; BMI 36.8
--- NOTE | 2022-03-09 16:19 | ED.URI ---
HPI - URI/Sore Throat General Chief Complaint: Upper Respiratory Symptoms Stated Complaint: congested cough Time Seen by Provider: 03/09/22 19:06 Source: patient Mode of arrival: ambulatory Limitations: no limitations History of Present Illness HPI Narrative: 56-year-old female with a past medical history of hypertension, hypercholesterolemia, HIV, depression and cirrhosis along with urinary incontinence presenting to the ER with URI complaints which include dry cough with chest congestion for the past 8 days. Reports that she was placed on Tessalon Perles and no symptomatic relief. She denies any fevers, chills, dizziness, headaches, neck pain/stiffness, trouble swallowing or breathing, chest pain or shortness of breath, dyspnea on exertion, orthopnea, palpitations, paresthesias, nausea/vomiting/diarrhea constipation, black or bloody stools, abdominal pain, back pain, flank pain, lower extremity edema or calf tenderness, recent travel or sick contact or any other symptoms complaints or concerns at this time. MD elicited complaint: cough Onset (ago): day(s) (8) Consistency: constant Severity: mild Description of mucous: clear, watery and yellow Able to tolerate fluids by mouth: Yes Exacerbating factors: nothing Relieving factors: nothing Associated symptoms: denies other symptoms Treatments prior to arrival: none Related Data Home Medications Medication Instructions Recorded Confirmed cholecalciferol (vitamin D3) 50 50 mcg PO DAILY 01/26/21 mcg (2,000 unit) tablet tramadol 50 mg tablet 50 mg PO Q8H PRN 01/26/21 zolpidem 10 mg tablet 10 mg PO BEDTIME PRN insomnia 01/26/21 hydroxyzine pamoate 25 mg capsule 25 mg PO TID PRN 03/04/22 olanzapine 5 mg tablet 5 mg PO BEDTIME 03/04/22 Previous Rx's Medication Instructions Recorded azithromycin 250 mg tablet See Rx Instructions PO .COMPLEX #6 04/16/20 (Zithromax Z-Cruz) tabs hydrocodone-homatropine 5 mg-1.5 5 ml PO Q4-6H PRN cough #60 mL 04/16/20 mg/5 mL oral syrup hydrocodone 5 mg-acetaminophen 325 1 tab PO Q6H PRN pain #8 tabs 11/25/20 mg tablet prednisone 20 mg tablet 40 mg PO DAILY 3 days #6 tabs 11/25/20 terazosin 1 mg capsule 1 mg PO BEDTIME incontinence 30 01/26/21 days #30 caps diclofenac sodium 50 mg 50 mg PO BID #20 tabs 02/19/22 tablet,delayed release codeine 10 mg-guaifenesin 100 mg/5 5 ml PO Q6H PRN cold symptoms #120 03/09/22 mL oral liquid (Guaifenesin AC) mL doxycycline monohydrate 100 mg 100 mg PO BID 7 days #14 tabs 03/09/22 tablet ibuprofen 800 mg tablet 800 mg PO Q8H PRN pain #14 tabs 03/09/22 prednisone 20 mg tablet 40 mg PO DAILY bronchospasm 5 days 03/09/22 #10 tabs Allergies Allergy/AdvReac Type Severity Reaction Status Date / Time buspirone [From BUSPAR] Allergy Intermediate TACHYCARDIA Verified 03/09/22 16:16 fluoxetine [From PROZAC] Allergy Intermediate FACIAL Verified 03/09/22 16:16 NEURALGIA meloxicam Allergy Unknown Hives Verified 03/09/22 16:16 Review of Systems Review of Systems: Constitutional : No Weight loss, No Fever, No Chills, No Night Sweats, No Fatigue, No Malaise ENT/Mouth : No Hearing loss, No Ear Pain, No Nasal Congestion, No Sinus Pain, No Hoarseness, No sore throat, No Rhinorrhea, No Swallowing Difficulty Eyes: No Eye Pain, No Swelling, No Redness, No Foreign Body, No Discharge, No Vision Changes Cardiovascular : No Chest Pain, No SOB, No Dyspnea on Exertion, No Orthopnea, No Edema, No Palpitations Respiratory : + Cough, No Sputum, No Wheezing, No Smoke Exposure, No Dyspnea Gastrointestinal : No Nausea, No Vomiting, No Diarrhea, No Constipation, No abdominal Pain, No Hematochezia, No Melena Genitourinary : no irregular bleeding, No Dysuria, No Urinary Frequency, No Hematuria, No Urinary Incontinence, No Urgency, No Flank Pain, No Urinary Flow Changes, No Hesitancy Musculoskeletal : No joint pain, No Myalgias, No Joint Swelling Skin : No Skin Lesions, No rash Neuro : No Weakness, No Numbness, No Paresthesias, No Loss of Consciousness, No Dizziness, No Headache Psych : No Anxiety/Panic, No Depression, No SI/HI/AH/VH, No Social Issues, Heme/Lymph: No Bruising, No Bleeding,No Lymphadenopathy Endocrine : No Polyuria, No Polydipsia, No Temperature Intolerance Yes all other systems are reviewed and are negative [facility] Past Medical History Attestation statement: The following information was validated with the patient. Source: old records reviewed and nursing notes reviewed Medical History Depression HIV (human immunodeficiency virus infection) Hypercholesteremia Hypertension Urinary incontinence Surgical History Hx of colonoscopy Family History Family History Mother HTN (hypertension) High cholesterol Sister HTN (hypertension) Social History Social History Alcohol intake: never Patient Tobacco Use Status: Current everyday Tobacco user Advance Directives: No Advance Directives Information Provided: No Physical Exam Vital Signs: Vital Signs: Last Vital Signs Temp 96.9 F 03/09/22 16:12 Pulse 71 03/09/22 16:12 Resp 16 03/09/22 16:12 BP 148/86 H 03/09/22 16:12 Pulse Ox 99 03/09/22 16:12 O2 Del Method 03/09/22 16:12 BMI result Body Mass Index 36.8 vital signs have been reviewed as normal and appeared to be correct. Blood pressure 148/86. Heart rate normal. Respiration rate normal. Temperature normal. Oxygen saturation normal. Appearance: Alert. Oriented X3. No acute distress. Head: Normal external exam. Normocephalic. Atraumatic. Eyes: PERRLA. EOMI. Conjunctiva and sclera normal. Eyelids normal. ENT: EAC normal. TM's Normal. Pharynx normal. Uvula midline. Moist mucous membranes. No lesions/ulcerations or masses noted on the tongue. Normal voice. No trismus noted. No drooling noted. No muffled voice noted. Neck: Normal inspection. Neck supple. FROM. No adenopathy. Thyroid Normal. No tracheal deviation noted. No crepitus is noted. No meningeal signs. No neck mass noted. No signs of trauma noted. CVS: Normal heart rate and rhythm. Heart sound normal. Pulses normal throughout. No murmurs/rales/gallops. Respiratory: No respiratory distress. Painless inspiration. Breath sounds normal. No wheezes/rales/rhonchi noted. Chest nontender. No crepitus is noted. No accessory muscle usage noted or decreased air movement noted. No signs of trauma. Abdomen: Soft and nontender. Nondistended. No guarding. No rigidity. Bowel sounds normal in all 4 quadrants. No distention noted. No organomegaly noted. No visible injury noted. No rebound tenderness. Negative Rovsing sign. Negative obturator's sign. Negative psoas sign. Negative Jones sign. Back: No CVA tenderness. Full range of motion noted. Nontender. No signs of trauma. Patient neuro intact bilaterally and distally on all 4 extremities. Patient's reflexes intact bilaterally and distally on all 4 extremities. No rashes/lesion/induration/fluctuance or signs of infection noted. Skin: Skin warm and dry. Normal skin color. Normal skin turgor. No rashes/lesions/lacerations noted. Extremities: No lower extremity edema. No calf tenderness is noted. Extremities exhibit normal range of motion and nontender. Neuro: Oriented X 3. No motor deficit. No sensory deficit. Reflexes normal. Normal steady gait. No focal neuro deficits noted. CN's II-XII intact bilaterally? Vascular: + radial pulses/+ 2 distal pedal pulses/+2 dorsalis pedis b/l. Normal cap refill. No cyanosis noted to upper extremity nails and lower extremity toes nails. Course Reevaluation(s) Reevaluation #1: RME - 56-year-old female presenting to the ED with complaints of 8 days of a dry cough with chest congestion. She reports that she was seen by her primary care provider recently and placed on Tessalon Perles and no symptomatic relief. She denies any fevers, dizziness, chest pain or shortness of breath or any other symptoms complaints or Plan: Patient is stable COVID and flu swab was obtained. X-ray ordered. Patient will be sent back to the waiting room for further evaluation treatment. Time: 16:19 Reevaluation #2: - chest x-ray within normal limits. Patient negative for influenza and COVID. No additional labs or imaging indicated. Will DC home with antibiotics and symptomatic treatment instructions return if any new or worsening symptoms follow up with primary care provider. Patient understands agrees with this plan. Time: 19:18 MDM - URI/Sore Throat Medical Records Attestation: I reviewed the patient's medical records. Lab Data Attestation: I reviewed the patient's lab results. Labs: Lab Results 03/09/22 03/09/22 Range/Units 16:20 16:20 COVID-19 (KENNETH) Negative (Negative) COVID-19 Clin Com See Note Influenza Type A (LOREN) Negative (Negative) Influenza Type B (LOREN) Negative (Negative) Influenza A & B Note See Note Imaging Data Chest x-ray: Attestation: I personally reviewed and interpreted this imaging study as follows: Radiologist's impression: COMPARISON: No prior chest x-ray available in our system for comparison at the time of this dictation.? TECHNIQUE: XR chest 2V Lungs and Zeinab: No radiographic evidence of acute cardiopulmonary disease. Pleura: Normal. Costophrenic angles are sharp. No pneumothorax. Heart: The heart is normal in size. Mediastinum: The mediastinum is within normal limits.. Bones: Skeletal structures included are normal for patient's age. XR/XR chest 2V IMPRESSION: No radiographic evidence of acute cardiopulmonary disease. Discharge Plan Discharge Clinical Impression: Upper respiratory infection Patient Disposition: Home, Self-Care Instructions: Upper Respiratory Infection (ED) Prescriptions: New doxycycline monohydrate 100 mg tablet 100 mg PO BID 7 Days Qty: 14 0RF prednisone 20 mg tablet 40 mg PO DAILY 5 Days Qty: 10 0RF ibuprofen 800 mg tablet 800 mg PO Q8H PRN (Reason: pain) Qty: 14 0RF codeine-guaifenesin [Guaifenesin AC] 10-100 mg/5 mL liquid 5 ml PO Q6H PRN (Reason: cold symptoms) Qty: 120 0RF No Action azithromycin [Zithromax Z-Cruz] 250 mg tablet See Rx Instructions .ROUTE .COMPLEX Qty: 6 0RF Rx Instructions: take 500 mg today (day 1), then 250 mg for 4 days (days 2-5) hydrocodone-homatropine 5-1.5 mg/5 mL syrup 5 ml PO Q4-6H PRN (Reason: cough) Qty: 60 0RF hydrocodone-acetaminophen 5-325 mg tablet 1 tab PO Q6H PRN (Reason: pain) Qty: 8 0RF prednisone 20 mg tablet 40 mg PO DAILY 3 Days Qty: 6 0RF diclofenac sodium 50 mg tablet,delayed release (DR/EC) 50 mg PO BID Qty: 20 0RF zolpidem 10 mg tablet 10 mg PO BEDTIME PRN (Reason: insomnia) tramadol 50 mg tablet 50 mg PO Q8H PRN cholecalciferol (vitamin D3) 50 mcg (2,000 unit) tablet 50 mcg PO DAILY terazosin 1 mg capsule 1 mg PO BEDTIME 30 Days Qty: 30 3RF hydroxyzine pamoate 25 mg capsule 25 mg PO TID PRN olanzapine 5 mg tablet 5 mg PO BEDTIME Referrals: [facility] [Primary Care Provider] - 2 days Print Language: Cape Verdean
[2022-03-09 16:50] LABS: COVID-19 Test Negative (Negative); IDNOW Serial# 55D5AD1C
[2022-03-09 16:51] LABS: Influenza A Negative (Negative); Influenza B2 Negative (Negative)
== END 2022-03-09 19:26 | disposition home or self-care (01) ==
PROVIDERS: Emergency Provider Emergency Medicine
DX: J06.9 Acute upper respiratory infection, unspecified (principal); Z20.822 Contact with and (suspected) exposure to COVID-19; B20 Human immunodeficiency virus [HIV] disease; I10 Essential (primary) hypertension; E78.5 Hyperlipidemia, unspecified
CPT/HCPCS: 71046; 87502; 87635; 99283

== ENCOUNTER 2023-02-05 10:37 | Outpatient (REF) | payer MEDICAID, SELFPAY ==
[2023-02-06 14:43] LABS: HCV Log PCR <1.18 NOT DETECTED Log IU/mL (NOT DETECTED); HepC Viral Load <15 NOT DETECTED IU/mL (NOT DETECTED)
[2023-02-07 09:44] LABS: HIV 1 Antibody POSITIVE (Abnormal)
[2023-02-07 09:45] LABS: HIV 2 Antibody NEGATIVE
[2023-02-07 12:53] LABS: Alpha Fetoprotein 4.1 ng/mL
== END 2023-02-05 10:38 | disposition home or self-care (01) ==
LOC: HO.HHCL 10:37
PROVIDERS: Visit Provider Registered Nurse
DX: Z00.00 Encounter for general adult medical examination without abnormal findings (principal); K74.69 Other cirrhosis of liver; B19.20 Unspecified viral hepatitis C without hepatic coma
CPT/HCPCS: 0353U; 36415; 80061; 80076; 82043; 82105; 82570; 83036; 84443; 85025; 85610; 86701; 86702; 86704; 86706; 86780; 86803; 87340; 87389; 87522

== ENCOUNTER 2023-04-03 14:53 | Outpatient (REF) | payer MEDICAID, SELFPAY ==
[2023-04-03 16:16] LABS: MANUAL DIFF FLAG NO
[2023-04-03 16:23] LABS: Basophils Percent Auto 0.4 % (0-2); Eosinophils Absolute Auto 0.1 X10*3/uL (0.0-0.4); Hematocrit 42.4 % (37.0-47.0); Hemoglobin 14.5 g/dl (12.0-16.0); Imm Gran Abs Auto 0.02 X10*3/uL (0.00-0.03); Imm Gran Pct Auto 0.3 % (0.0-0.4); Lymphocytes Absolute Auto 2.4 X10*3/uL (1.2-4.9); Lymphocytes Percent Auto 30.9 % (20-40); Mean Corpuscular HGB Conc 34.2 g/dl (31.0-35.0); Mean Corpuscular Hemoglobin 29.6 pg (27.0-33.0); Mean Corpuscular Volume 86.5 fL (80.0-98.0); Mean Platelet Volume 12.2 fL (9.4-12.3); Monocytes Absolute Auto 0.6 X10*3/uL (0.1-1.2); Monocytes Percent Auto 7.4 % (2-11); Neutrophils Absolute Auto 4.7 x10*3/uL (2.0-8.3); Platelet Count 195 X10*3/uL (160-400); Red Cell Distribution Width 12.5 % (11.0-16.0); White Blood Count 7.9 X10*3/uL (4.8-10.8)
[2023-04-03 16:29] LABS: Alanine Aminotransferase 12 U/L (0-31); Albumin Level 4.3 g/dL (3.5-5.0); Alkaline Phosphatase 136 U/L (39-117); Anion Gap 10 (12-20); Aspartate Amino Transferase 15 U/L (5-31); Bilirubin Total 0.5 mg/dL (0.0-1.0); Blood Urea Nitrogen 9 mg/dL (9-16); Calcium 9.3 mg/dL (8.4-10.2); Carbon Dioxide 27 mmol/L (22-29); Chloride 108 mmol/L (96-108); Estimated Glomerular Filt Rate > 60; Glucose Random 83 mg/dL (60-115); Potassium 3.4 mmol/L (3.3-5.1); Sodium 142 mmol/L (135-145); Total Protein 7.9 g/dL (6.5-8.0)
[2023-04-07 07:32] LABS: Absolute CD3 Count 1963 cells/uL (840-3060); Absolute CD4 Count 606 cells/uL (490-1740); Absolute CD8 Count 1381 cells/uL (180-1170); Absolute Lymphocytes 2485 cells/uL (850-3900); CD4 CD8 Ratio 0.44 (0.86-5.00); Percent CD3 Cells 79 % (57-85); Percent CD4 Cells 24 % (30-61); Percent CD8 Cells 56 % (12-42)
[2023-04-07 11:59] LABS: HIV RNA PCR Qn Copies 93 copies/mL (NOT DETECTED); HIV RNA PCR Qn Log Copies 1.97 (NOT DETECTED)
== END 2023-04-03 14:54 | disposition home or self-care (01) ==
LOC: HO.HHCL 14:53
PROVIDERS: Visit Provider Student in an Organized Health Care Education/Training Program
DX: B20 Human immunodeficiency virus [HIV] disease (principal)
CPT/HCPCS: 36415; 80053; 85025; 86359; 86360; 87536

== ENCOUNTER 2023-04-23 13:27 | Outpatient (REF) | payer MEDICAID, SELFPAY ==
[2023-04-25 17:54] LABS: HIV RNA PCR Qn Copies NOT DETECTED copies/mL (NOT DETECTED); HIV RNA PCR Qn Log Copies NOT DETECTED (NOT DETECTED)
== END 2023-04-23 13:28 | disposition home or self-care (01) ==
LOC: HO.HHCL 13:27
PROVIDERS: Visit Provider Student in an Organized Health Care Education/Training Program
DX: B20 Human immunodeficiency virus [HIV] disease (principal)
CPT/HCPCS: 36415; 87536

== ENCOUNTER 2023-05-21 12:00 | Outpatient (REF) | payer MEDICAID, SELFPAY ==
[2023-05-22 15:39] LABS: HIV RNA PCR Qn Copies 81 copies/mL (NOT DETECTED); HIV RNA PCR Qn Log Copies 1.91 (NOT DETECTED)
== END 2023-05-21 12:01 | disposition home or self-care (01) ==
LOC: HO.HHCL 12:00
PROVIDERS: Visit Provider Student in an Organized Health Care Education/Training Program
DX: B20 Human immunodeficiency virus [HIV] disease (principal)
CPT/HCPCS: 36415; 87536

== ENCOUNTER 2023-07-23 11:46 | Outpatient (REF) | payer MEDICAID, SELFPAY ==
[2023-07-25 15:18] LABS: HIV RNA PCR Qn Copies 108 copies/mL (NOT DETECTED); HIV RNA PCR Qn Log Copies 2.03 (NOT DETECTED)
[2023-08-08 18:42] LABS: HIV 1 Integrase Proviral DNA DETECTED; HIV 1 PR RT Proviral DNA DETECTED
== END 2023-07-23 11:47 | disposition home or self-care (01) ==
LOC: HO.HHCL 11:46
PROVIDERS: Visit Provider Student in an Organized Health Care Education/Training Program
DX: B20 Human immunodeficiency virus [HIV] disease (principal)
CPT/HCPCS: 36415; 87536; 87900; 87901; 87906

== ENCOUNTER 2023-10-22 16:53 | Outpatient (REF) | payer MEDICAID, SELFPAY ==
[2023-10-24 01:38] LABS: C. trachomatis RNA TMA NOT DETECTED (NOT DETECTED); N. gonorrhoeae RNA TMA NOT DETECTED (NOT DETECTED); Trichomonas (NAAT) NOT DETECTED (NOT DETECTED)
== END 2023-10-22 16:54 | disposition home or self-care (01) ==
LOC: HO.HHCLNP 16:53
PROVIDERS: Visit Provider Registered Nurse
DX: Z01.419 Encounter for gynecological examination (general) (routine) without abnormal findings (principal); B20 Human immunodeficiency virus [HIV] disease
CPT/HCPCS: 36415; 87491; 87591; 87661; 88112

== ENCOUNTER → 2023-11-13 11:45 | Outpatient (BNV) | payer MEDICAID, SELFPAY | PROVIDERS: PCP Registered Nurse; Visit Provider Radiology Diagnostic Radiology | DX: Z12.31 Encounter for screening mammogram for malignant neoplasm of breast (principal) | CPT/HCPCS: 77063; 77067 ==

== ENCOUNTER 2023-11-13 11:57 | Outpatient (REF) | payer MEDICAID, SELFPAY | END 2023-11-13 11:58 | disposition home or self-care (01) | LOC: HO.MAMMO 11:57 | PROVIDERS: PCP Registered Nurse; Visit Provider Registered Nurse | DX: Z12.31 Encounter for screening mammogram for malignant neoplasm of breast (principal) | CPT/HCPCS: 77063; 77067 ==

== ENCOUNTER 2024-02-03 09:24 | Outpatient (REF) | payer MEDICAID, SELFPAY ==
[2024-02-03 11:36] LABS: MANUAL DIFF FLAG NO
[2024-02-03 11:39] LABS: Appearance Urine Clear; Color Urine Yellow; Glucose Urine UA Negative (Negative); Leukocyte Esterase Urine Negative (Negative); Nitrite Urine Negative (Negative); UMIC TRIGGER UACC YES; Urine Blood Moderate (2+) (Negative); Urine Ketones Negative (Negative); Urine Protein Negative (Neg-Trace)
[2024-02-03 11:43] LABS: Basophils Percent Auto 0.5 % (0-2); Eosinophils Absolute Auto 0.1 X10*3/uL (0.0-0.4); Eosinophils Percent Auto 1.3 % (0-4); Hematocrit 41.2 % (37.0-47.0); Hemoglobin 14.4 g/dl (12.0-16.0); Imm Gran Abs Auto 0.02 X10*3/uL (0.00-0.03); Imm Gran Pct Auto 0.3 % (0.0-0.4); Lymphocytes Absolute Auto 2.1 X10*3/uL (1.2-4.9); Lymphocytes Percent Auto 33.1 % (20-40); Mean Corpuscular Hemoglobin 31.2 pg (27.0-33.0); Mean Corpuscular Volume 89.2 fL (80.0-98.0); Mean Platelet Volume 12.5 fL (9.4-12.3); Monocytes Absolute Auto 0.5 X10*3/uL (0.1-1.2); Monocytes Percent Auto 7.7 % (2-11); Neutrophils Absolute Auto 3.5 x10*3/uL (2.0-8.3); Neutrophils Percent Auto 57.1 % (45-73); Platelet Count 181 X10*3/uL (160-400); Red Blood Count 4.62 X10*6/uL (4.20-5.50); Red Cell Distribution Width 12.9 % (11.0-16.0); White Blood Count 6.2 X10*3/uL (4.8-10.8)
[2024-02-03 11:44] LABS: Bacteria Urine 1+ (None Seen); Hyaline Casts Urine 0-2 /LPF (0-2); WBC Urine 0-5 /HPF (0-5)
[2024-02-03 12:10] LABS: Cholesterol 147 mg/dL (<200); HDL Cholesterol 49 mg/dL (>40); LDL Cholesterol Calculated 74 mg/dL (<100); Triglycerides 120 mg/dL (<150)
[2024-02-03 12:12] LABS: Estimated Average Glucose 123 mg/dL; Hemoglobin A1C 149.8658 umol/L; Hemoglobin A1c % 5.9 % (<6.0); Total Hemoglobin (HGBA1C) 3673.5937 umol/L
[2024-02-03 12:15] LABS: Alanine Aminotransferase 14 U/L (0-31); Albumin Level 4.3 g/dL (3.5-5.0); Alkaline Phosphatase 117 U/L (39-117); Anion Gap 11 (12-20); Aspartate Amino Transferase 20 U/L (5-31); Bilirubin Direct 0.2 mg/dL (0.0-0.5); Bilirubin Total 0.4 mg/dL (0.0-1.0); Blood Urea Nitrogen 15 mg/dL (9-16); Calcium 9.4 mg/dL (8.4-10.2); Carbon Dioxide 26 mmol/L (22-29); Chloride 109 mmol/L (96-108); Estimated Glomerular Filt Rate > 60; Gamma Glutamyl Transpeptidase 34 U/L (7-33); Glucose Random 107 mg/dL (60-115); Sodium 142 mmol/L (135-145); Total Protein 7.7 g/dL (6.5-8.0)
[2024-02-03 12:34] LABS: TSH reflex Free T4 3.41 uIU/mL (0.32-4.0); Vitamin D 25-OH Total 21.4 ng/mL (>30)
[2024-02-03 13:04] LABS: ~HepC Num1 10.08 S/CO (0.00-0.79); ~Hepatitis C Antibody Reactive (Nonreactive)
[2024-02-03 13:35] LABS: Reflex LDLD? No
[2024-02-04 20:18] LABS: HCV Log PCR <1.18 NOT DETECTED Log IU/mL (NOT DETECTED); HepC Viral Load <15 NOT DETECTED IU/mL (NOT DETECTED)
[2024-02-04 20:28] LABS: HIV RNA PCR Qn Copies NOT DETECTED copies/mL (NOT DETECTED); HIV RNA PCR Qn Log Copies NOT DETECTED (NOT DETECTED)
[2024-02-05 10:08] LABS: RPR Rapid Plasma Reagin NON-REACTIVE (NON-REACTIVE)
[2024-02-06 01:17] LABS: TS Negative Control Passed; TS Panel A 0; TS Panel B 0; TS Positive Control Passed; TSpotTB Negative (Negative)
== END 2024-02-03 09:25 | disposition home or self-care (01) ==
LOC: HO.HHCL 09:24
PROVIDERS: Registered Nurse; Visit Provider Student in an Organized Health Care Education/Training Program
DX: Z21 Asymptomatic human immunodeficiency virus [HIV] infection status (principal); R74.8 Abnormal levels of other serum enzymes; Z86.39 Personal history of other endocrine, nutritional and metabolic disease
CPT/HCPCS: 36415; 80053; 80061; 80076; 81001; 82248; 82306; 82977; 83036; 84443; 85025; 86481; 86592; 86803; 87522; 87536

== ENCOUNTER 2024-02-16 16:03 | Outpatient (REF) | payer MEDICAID, SELFPAY ==
[2024-02-16 17:28] LABS: Appearance Urine Clear; Color Urine Yellow; Glucose Urine UA Negative (Negative); Leukocyte Esterase Urine Negative (Negative); Nitrite Urine Negative (Negative); PH 5.5 (5.0-9.0); Specific Gravity - Urine 1.015 (1.005-1.025); UMIC TRIGGER UACC YES; Urine Blood Trace (Negative); Urine Ketones Negative (Negative); Urine Protein Negative (Neg-Trace)
[2024-02-16 17:33] LABS: Bacteria Urine None Seen (None Seen); Hyaline Casts Urine 0-2 /LPF (0-2); Squamous Epithelial Cell Urine 0-2 /HPF (0-2); WBC Urine 0-5 /HPF (0-5)
== END 2024-02-16 16:04 | disposition home or self-care (01) ==
LOC: HO.HHCLNP 16:03
PROVIDERS: Visit Provider Student in an Organized Health Care Education/Training Program
DX: R31.9 Hematuria, unspecified (principal)
CPT/HCPCS: 81001

== ENCOUNTER 2024-02-25 16:08 | Outpatient (REF) | payer MEDICAID, SELFPAY ==
[2024-02-26 08:46] LABS: HPV 16,18/45 See PAP report
== END 2024-02-25 16:09 | disposition home or self-care (01) ==
LOC: HO.HHCLNP 16:08
PROVIDERS: Visit Provider Registered Nurse
DX: Z12.4 Encounter for screening for malignant neoplasm of cervix (principal)
CPT/HCPCS: 87624; 88175

== ENCOUNTER 2024-03-23 08:54 | Outpatient (REF) | payer MEDICAID, SELFPAY ==
--- NOTE | ~2024-03-23 | XR_ITS ---
EXAMINATION: XR CHEST CLINICAL INFORMATION: prolonged cough and shortness of breath COMPARISON: None available. TECHNIQUE: 2 views of the chest were obtained. FINDINGS: Redemonstration of mild anterior wedge compression deformity of a lower thoracic vertebral body. Moderate degenerative changes in the thoracic spine. Surgical clips right upper quadrant. Heart size is normal. There is no gross pneumothorax. No pleural effusion. No focal consolidation. XR/XR chest 2V IMPRESSION: 1. No evidence of pneumonia. 2. Redemonstration of mild anterior wedge compression deformity of a lower thoracic vertebral body. 3. Electronically signed by: Therese Lopez MD 03/23/2024 12:18 PM [facility]
== END 2024-03-23 08:55 | disposition home or self-care (01) ==
LOC: HO.HHCX 08:54
PROVIDERS: Visit Provider Nurse Practitioner
DX: R05.9 Cough, unspecified (principal)
CPT/HCPCS: 71046

== ENCOUNTER 2024-07-20 08:28 | Outpatient (REF) | payer MEDICAID, SELFPAY ==
[2024-07-20 11:15] LABS: MANUAL DIFF FLAG NO
[2024-07-20 11:27] LABS: Basophils Percent Auto 0.4 % (0-2); Eosinophils Absolute Auto 0.2 X10*3/uL (0.0-0.4); Eosinophils Percent Auto 2.2 % (0-4); Imm Gran Abs Auto 0.03 X10*3/uL (0.00-0.03); Imm Gran Pct Auto 0.4 % (0.0-0.4); Lymphocytes Absolute Auto 2.6 X10*3/uL (1.2-4.9); Mean Corpuscular HGB Conc 35.7 g/dl (31.0-35.0); Mean Corpuscular Hemoglobin 30.7 pg (27.0-33.0); Mean Corpuscular Volume 85.9 fL (80.0-98.0); Mean Platelet Volume 12.9 fL (9.4-12.3); Monocytes Absolute Auto 0.5 X10*3/uL (0.1-1.2); Monocytes Percent Auto 6.9 % (2-11); Neutrophils Absolute Auto 4.5 x10*3/uL (2.0-8.3); Neutrophils Percent Auto 57.1 % (45-73); Platelet Count 216 X10*3/uL (160-400); Red Blood Count 4.89 X10*6/uL (4.20-5.50); Red Cell Distribution Width 12.8 % (11.0-16.0); White Blood Count 7.8 X10*3/uL (4.8-10.8)
[2024-07-20 11:54] LABS: Alanine Aminotransferase 20 U/L (0-31); Albumin Level 4.1 g/dL (3.5-5.0); Alkaline Phosphatase 127 U/L (39-117); Anion Gap 12 (12-20); Aspartate Amino Transferase 23 U/L (5-31); Bilirubin Direct 0.2 mg/dL (0.0-0.5); Bilirubin Total 0.4 mg/dL (0.0-1.0); Blood Urea Nitrogen 15 mg/dL (9-16); Calcium 9.4 mg/dL (8.4-10.2); Carbon Dioxide 23 mmol/L (22-29); Chloride 110 mmol/L (96-108); Estimated Glomerular Filt Rate > 60; Glucose Random 130 mg/dL (60-115); Potassium 3.8 mmol/L (3.3-5.1); Sodium 141 mmol/L (135-145); Total Protein 7.6 g/dL (6.5-8.0)
[2024-07-20 12:36] LABS: HBc Num1 0.07 S/CO (0.00-0.79); HBsAGNum1 0.36 S/CO (0.00-0.99); Hepatitis B Core Antibody Nonreactive (Nonreactive); Hepatitis B Surface Antigen Negative (Negative); ~Hepatitis B Surface Antibody REACTIVE (Nonreactive)
[2024-07-21 13:24] LABS: Hepatitis B Viral DNA Qn - cp NOT DETECTED Log IU/mL (NOT DETECTED); Hepatitis B Viral DNA Qn-IU/mL NOT DETECTED (NOT DETECTED)
[2024-07-21 19:08] LABS: HIV RNA PCR Qn Copies 292 copies/mL (NOT DETECTED); HIV RNA PCR Qn Log Copies 2.47 (NOT DETECTED)
[2024-07-24 15:57] LABS: Absolute CD3 Count 2213 cells/uL (840-3060); Absolute CD4 Count 726 cells/uL (490-1740); Absolute CD8 Count 1500 cells/uL (180-1170); Absolute Lymphocytes 2831 cells/uL (850-3900); CD4 CD8 Ratio 0.48 (0.86-5.00); Percent CD3 Cells 78 % (57-85); Percent CD4 Cells 26 % (30-61); Percent CD8 Cells 53 % (12-42)
== END 2024-07-20 08:29 | disposition home or self-care (01) ==
LOC: HO.HHCL 08:28
PROVIDERS: Student in an Organized Health Care Education/Training Program; Visit Provider Nurse Practitioner
DX: R10.11 Right upper quadrant pain (principal); Z21 Asymptomatic human immunodeficiency virus [HIV] infection status
CPT/HCPCS: 36415; 80053; 80076; 82248; 85025; 86359; 86360; 86704; 86706; 87340; 87517; 87536

== ENCOUNTER 2024-08-31 10:38 | Outpatient (REF) | payer MEDICAID, SELFPAY ==
[2024-08-31 11:31] LABS: Estimated Average Glucose 126 mg/dL; Hemoglobin A1C 155.2406 umol/L
--- OUTSIDE RECORDS SUMMARY | 2024-08-31 12:15 | XMS_ITS | Patient Health Record ---
Author Organization [facility] Address [address], [place] [phone] Care Team Providers Care Apparel Manufacture Instructor Name Role Phone Tata Ziegler Unavailable [phone] Reason For Referral No Information Encounters Encounter Location Date Provider Diagnosis [facility] [address], [place] [phone] 09/30/2023 Tata Ziegler [facility] [address], [place] [phone] 10/14/2023 Tata Ziegler [facility] [address], [place] [phone] 11/13/2023 Tata Ziegler [facility] [address], [place] [phone] 02/27/2024 Tata Ziegler Plan Of Treatment No Information Insurance Providers Payer Name Payer Address Payer Phone Subscriber Number Group Number Insured Name Patient Relationship to Insured Coverage Start Date Coverage End Date Insurance - None Need to apply for insurance [address] [place] [address] Jaja Booker Self - patient is the insured
--- OUTSIDE RECORDS SUMMARY | 2024-08-31 12:15 | XMS_ITS ---
Author Organization [facility] Address [address] [place], [place] [phone] Care Team Providers Care Stone Finisher Name Role Phone Toney Tata Unavailable Encounters Encounter Location Date Provider Diagnosis [facility] [address] [place] [phone] 08/06/2024 Tata Ziegler Plan Of Treatment No Information Progress Notes * Jaja FARLEY MDOB:1965 (58 yo F)Acc No.[id number]:08/06/2024 Case Management Patient:?Jaja FARLEY Provider:?Tata Ziegler :1965???Age:58 Y???Sex:Female D ate:08/06/2024 Phone: Address:[address] [place], [place] [phone] Subjective: * Chief Complaints: * ??? * Medical History:? Objective: Assessment: Plan: * Treatment: * Images: Billing Information: * Visit Code:? * Procedure Codes:? Care Plan Details* * Electronic signature of Ramiro Ziegler on 08/31/2024 at 12:15 PM EDT Sign off status: Pending * Provider:?Tata Ziegler Date:? Generated for Timothy strickland/Joe/eTransmitting on:?08/31/2024 12:15 PM EDT
[2024-08-31 15:10] LABS: Alanine Aminotransferase 21 U/L (0-31); Albumin Level 4.4 g/dL (3.5-5.0); Aspartate Amino Transferase 25 U/L (5-31); Bilirubin Direct 0.1 mg/dL (0.0-0.5); Bilirubin Total 0.4 mg/dL (0.0-1.0); Cholesterol 169 mg/dL (<200); HDL Cholesterol 49 mg/dL (>40); LDL Cholesterol Calculated 98 mg/dL (<100); Total Protein 7.9 g/dL (6.5-8.0); Triglycerides 112 mg/dL (<150)
[2024-08-31 16:01] LABS: TSH reflex Free T4 3.16 uIU/mL (0.32-4.0); Vitamin D 25-OH Total 26.6 ng/mL (>30)
[2024-08-31 18:05] LABS: Alkaline Phosphatase 132 U/L (39-117)
[2024-09-01 11:54] LABS: Alpha Fetoprotein 4.9 ng/mL
[2024-09-02 16:58] LABS: HIV RNA PCR Qn Copies 53 copies/mL (NOT DETECTED); HIV RNA PCR Qn Log Copies 1.72 (NOT DETECTED)
== END 2024-08-31 10:39 | disposition home or self-care (01) ==
LOC: HO.HHCL 10:38
PROVIDERS: Student in an Organized Health Care Education/Training Program; Visit Provider Registered Nurse
DX: Z21 Asymptomatic human immunodeficiency virus [HIV] infection status (principal); B19.20 Unspecified viral hepatitis C without hepatic coma; K74.69 Other cirrhosis of liver; Z00.00 Encounter for general adult medical examination without abnormal findings
CPT/HCPCS: 36415; 80061; 80076; 82105; 82306; 83036; 84443; 87536

== ENCOUNTER 2024-09-06 11:25 | Outpatient (REF) | payer MEDICAID, SELFPAY ==
--- OUTSIDE RECORDS SUMMARY | 2024-09-06 12:15 | XMS_ITS ---
Author Organization [facility] Address [address] [place], [place] [phone] Care Team Providers Care Quality Control Industrial Engineer Name Role Phone Tata Ziegler Unavailable [phone] Encounters Encounter Location Date Provider Diagnosis [facility] [address] [place] [phone] 08/06/2024 Tata Ziegler Plan Of Treatment No Information Progress Notes * Jaja FARLEY MDOB:1965 (58 yo F)Acc No.[id number]:08/06/2024 Case Management Patient:?Jaja FARLEY Provider:?Tata Ziegler :1965???Age:58 Y???Sex:Female D ate:08/06/2024 Phone: Address:[address] [place], [place] [phone] Subjective: * Chief Complaints: * ??? * Medical History:? Objective: Assessment: Plan: * Treatment: * Images: Billing Information: * Visit Code:? * Procedure Codes:? Care Plan Details* * Electronic signature of Ramiro Ziegler on 09/06/2024 at 08:52 AM EDT Sign off status: Pending * Provider:?Tata Ziegler Date:? Generated for Timothy strickland/Joe/eTransmitting on:?09/06/2024 08:52 AM EDT
--- OUTSIDE RECORDS SUMMARY | 2024-09-06 12:15 | XMS_ITS | Patient Health Record ---
Author Organization [facility] Address [address] [place], [place] [phone] Care Team Providers Care Slot Service Specialist Name Role Phone Tata Ziegler Unavailable [phone] Reason For Referral No Information Encounters Encounter Location Date Provider Diagnosis [facility] [address] [place], [place] [phone] 09/30/2023 Tata Ziegler [facility] [address] [place], [place] [phone] 10/14/2023 Tata Ziegler [facility] [address] [place], [place] [phone] 11/13/2023 Tata Ziegler [facility] [address] [place], [place] [phone] 02/27/2024 Tata Ziegler Plan Of Treatment No Information Insurance Providers Payer Name Payer Address Payer Phone Subscriber Number Group Number Insured Name Patient Relationship to Insured Coverage Start Date Coverage End Date Insurance - None Need to apply for insurance [id number] [place] [address] Jaja Booker Self - patient is the insured
== END 2024-09-06 11:26 | disposition home or self-care (01) ==
LOC: HO.HHCLNP 11:25
PROVIDERS: Visit Provider Student in an Organized Health Care Education/Training Program
DX: L98.9 Disorder of the skin and subcutaneous tissue, unspecified (principal)
CPT/HCPCS: 88112

== ENCOUNTER 2024-09-10 13:21 | Outpatient (REF) | payer MEDICAID, SELFPAY ==
--- NOTE | ~2024-09-10 | US_ITS ---
EXAMINATION: US KIDNEY BILATERAL HISTORY: HEMATURIA TECHNIQUE: Real-time grayscale ultrasound imaging of the kidneys was performed and images were reviewed. COMPARISON: Correlation is made with an abdominal ultrasound dated 10/04/2021. FINDINGS: Right kidney: The right kidney measures 11.0 x 4.3 x 5.3 cm. Renal parenchymal echotexture and thickness are normal. There is a tiny 4 mm cyst in the interpolar region. There is no hydronephrosis or renal calculi. Left Kidney: The left kidney measures 10.8 x 6.1 x 4.9 cm. Renal parenchymal echotexture and thickness are normal. There are no masses. There is no hydronephrosis or renal calculi. US/US renal BI IMPRESSION: 4 mm right renal cyst. Otherwise unremarkable renal ultrasound. Electronically signed by: Fei Vallejo MD 09/10/2024 02:24 PM EDT
--- OUTSIDE RECORDS SUMMARY | 2024-09-10 13:23 | XMS_ITS ---
Author Organization [facility] Address [address] [place], [place] [phone] Care Team Providers Care Seafood Farmer Name Role Phone Toney Tata Unavailable [phone] Encounters Encounter Location Date Provider Diagnosis [facility] [address] [place] [phone] 08/06/2024 Tata Ziegler Plan Of Treatment No Information Progress Notes * Jaja FARLEY MDOB:1965 (58 yo F)Acc No.[id number]:08/06/2024 Case Management Patient:?Jaja FARLEY Provider:?Tata Ziegler :1965???Age:58 Y???Sex:Female D ate:08/06/2024 Phone: Address:[address] [place], [place] [phone] Subjective: * Chief Complaints: * ??? * Medical History:? Objective: Assessment: Plan: * Treatment: * Images: Billing Information: * Visit Code:? * Procedure Codes:? Care Plan Details* * Electronic signature of Ramiro Ziegler on 09/10/2024 at 11:42 AM EDT Sign off status: Pending * Provider:?Tata Ziegler Date:? Generated for Timohty strickland/Joe/eTransmitting on:?09/10/2024 11:42 AM EDT
--- OUTSIDE RECORDS SUMMARY | 2024-09-10 13:24 | XMS_ITS | Patient Health Record ---
Author Organization [facility] Address [address] [place], [place] [phone] Care Team Providers Care Lepidopterist Name Role Phone Tata Ziegler Unavailable Reason For Referral No Information Encounters Encounter Location Date Provider Diagnosis [facility] [address] [place], [place] [phone] 09/30/2023 Tata Ziegler [facility] [address] [place], [place] [phone] 10/14/2023 Tata Ziegler [facility] [address] [place], [place] [phone] 11/13/2023 Tata Ziegler [facility] [address] [place], [place] [phone] 02/27/2024 Tata Ziegler Plan Of Treatment No Information Insurance Providers Payer Name Payer Address Payer Phone Subscriber Number Group Number Insured Name Patient Relationship to Insured Coverage Start Date Coverage End Date Insurance - None Need to apply for insurance [id number] [place] [address] Jaja Booker Self - patient is the insured
== END 2024-09-10 13:22 | disposition home or self-care (01) ==
LOC: HO.US 13:21
PROVIDERS: PCP Student in an Organized Health Care Education/Training Program; Visit Provider Student in an Organized Health Care Education/Training Program
DX: R31.9 Hematuria, unspecified (principal)
CPT/HCPCS: 76775

== ENCOUNTER → 2024-09-10 14:02 | Outpatient (BNV) | payer MEDICAID, SELFPAY | PROVIDERS: PCP Student in an Organized Health Care Education/Training Program; Visit Provider Radiology Diagnostic Radiology | DX: N28.1 Cyst of kidney, acquired (principal) | CPT/HCPCS: 76775 ==

== ENCOUNTER 2024-12-02 12:23 | Outpatient (REF) | payer MEDICAID, SELFPAY ==
--- OUTSIDE RECORDS SUMMARY | 2024-08-06 10:00 | XMS_ITS ---
Author Organization [facility] Address [address] [place], [place] [phone] Care Team Providers Care Electrician Journeyman Wireman Name Role Phone ColungaTata Dupree Unavailable Encounters Encounter Location Date Provider Diagnosis [facility] [address] [place] [phone] 08/06/2024 Tata Ziegler Plan Of Treatment No Information Progress Notes * Jaja FARLEY MDOB:1965 (59 yo F)Acc No.[id number]:08/06/2024 Case Management Patient: Jaja MORA Provider: Mitesh Ziegler :1965 A ge:58 Y S ex:Female Date:08/06/2024 Phone: Address:[address] [place] [address] Subjective: * Chief Complaints: * * Medical History: Objective: Assessment: Plan: * Treatment: * Images: Billing Information: * Visit Code: * Procedure Codes: Care Plan Details* * Electronic signature of Ramiro Ziegler on 12/02/2024 at 12:37 PM EDT Sign off status: Pending * Provider: Mitesh Ziegler Date: 0 08/06/2024 Generated for Timothy strickland/Joe/eTbekasmsean on: 0 12/02/2024 12:37 PM EDT
--- NOTE | ~2024-12-02 | XR_ITS ---
EXAMINATION: XR LUMBAR SPINE 2-3 VIEWS HISTORY: several week h/o atraumatic right LBP with right sided radiculopathy. COMPARISON: Comparison is made with the prior examination dated 08/19/2018. FINDINGS: AP, lateral, and coned down views of the lumbar spine are submitted. Osseous mineralization is normal. Five nonrib-bearing lumbar vertebral bodies are identified, maintaining normal height and alignment without evidence of fracture or spondylolisthesis. There is mild degenerative disc disease with disc space narrowing and osteophyte formation. There is osteoarthritis of the L5-S1 facet joints. The visualized paraspinal soft tissues are unremarkable. XR/XR lumbar spine 2-3V IMPRESSION: Degenerative changes of the lumbar spine as described. Electronically signed by: Fei Vallejo MD 12/02/2024 01:58 PM EDT
== END 2024-12-02 12:24 | disposition home or self-care (01) ==
LOC: HO.HHCX 12:23
PROVIDERS: PCP Registered Nurse; Visit Provider Emergency Medicine
DX: M54.41 Lumbago with sciatica, right side (principal)
CPT/HCPCS: 72100

== ENCOUNTER → 2024-12-02 12:28 | Outpatient (BNV) | payer MEDICAID, SELFPAY | PROVIDERS: PCP Registered Nurse; Visit Provider Radiology Diagnostic Radiology | DX: M51.360 Other intervertebral disc degeneration, lumbar region with discogenic back pain only (principal) | CPT/HCPCS: 72100 ==

== ENCOUNTER 2024-12-06 13:06 | Outpatient (REF) | payer MEDICAID, SELFPAY ==
[2024-12-06 14:23] LABS: MANUAL DIFF FLAG NO
[2024-12-06 14:53] LABS: Hematocrit 42.5 % (37.0-47.0); Hemoglobin 14.7 g/dl (12.0-16.0); Imm Gran Abs Auto 0.04 X10*3/uL (0.00-0.03); Imm Gran Pct Auto 0.5 % (0.0-0.4); Lymphocytes Absolute Auto 2.7 X10*3/uL (1.2-4.9); Mean Corpuscular HGB Conc 34.6 g/dl (31.0-35.0); Mean Corpuscular Hemoglobin 30.4 pg (27.0-33.0); Mean Corpuscular Volume 87.8 fL (80.0-98.0); NRBC Abs Auto 0.000 X10*3/uL (0.0-0.012); NRBC Pct Auto 0.0 /100WBC (0.0-0.2); Platelet Count 222 X10*3/uL (160-400); Red Blood Count 4.84 X10*6/uL (4.20-5.50); White Blood Count 8.3 X10*3/uL (4.8-10.8)
[2024-12-06 15:40] LABS: Blood Urea Nitrogen 14 mg/dL (9-16)
[2024-12-06 15:47] LABS: Alanine Aminotransferase 22 U/L (0-31); Albumin Level 4.7 g/dL (3.5-5.0); Alkaline Phosphatase 146 U/L (39-117); Anion Gap 14 (12-20); Aspartate Amino Transferase 26 U/L (5-31); Blood Urea Nitrogen 13 mg/dL (9-16); Calcium 9.5 mg/dL (8.4-10.2); Carbon Dioxide 22 mmol/L (22-29); Chloride 108 mmol/L (96-108); Estimated Glomerular Filt Rate > 60; Potassium 3.9 mmol/L (3.3-5.1); Sodium 140 mmol/L (135-145); Total Protein 8.2 g/dL (6.5-8.0)
[2024-12-08 16:18] LABS: HIV RNA PCR Qn Copies 30 copies/mL (NOT DETECTED); HIV RNA PCR Qn Log Copies 1.48 (NOT DETECTED)
== END 2024-12-06 13:07 | disposition home or self-care (01) ==
LOC: HO.LAB 13:06
PROVIDERS: PCP Student in an Organized Health Care Education/Training Program; Visit Provider Nurse Practitioner Family
DX: R39.15 Urgency of urination (principal); R32 Unspecified urinary incontinence; Z21 Asymptomatic human immunodeficiency virus [HIV] infection status; R31.0 Gross hematuria; N32.81 Overactive bladder; F17.200 Nicotine dependence, unspecified, uncomplicated; Z13.89 Encounter for screening for other disorder
CPT/HCPCS: 36415; 80053; 81003; 84520; 85025; 87536; 88112; 99212

== ENCOUNTER 2024-12-06 13:06 | Outpatient (AMB) | payer MEDICAID, SELFPAY ==
--- OUTSIDE RECORDS SUMMARY | 2024-08-06 10:00 | XMS_ITS ---
Author Organization [facility] Address [address] [place], [place] [id number] Care Team Providers Care Customer Service Officer Name Role Phone ColungaTata Dupree Unavailable [phone] Encounters Encounter Location Date Provider Diagnosis [facility] [address] [place] [phone] 08/06/2024 Tata Ziegler Plan Of Treatment No Information Progress Notes * Jaja FARLEY MDOB:1965 (59 yo F)Acc No.[id number]:08/06/2024 Case Management Patient: Jaja MORA Provider: Mitesh Ziegler :1965 A ge:58 Y S ex:Female Date:08/06/2024 Phone: Address:[address] [place] [address] Subjective: * Chief Complaints: * * Medical History: Objective: Assessment: Plan: * Treatment: * Images: Billing Information: * Visit Code: * Procedure Codes: Care Plan Details* * Electronic signature of Ramiro Ziegler on 12/06/2024 at 01:16 PM EDT Sign off status: Pending * Provider: Mitesh Ziegler Date: 08/06/2024 Generated for Timothy strickland/Joe/eTbekasmsean on: 12/06/2024 01:16 PM EDT
--- NOTE | 2024-12-06 13:14 | MHC.OFFVIS ---
Intake Visit Reasons: microscopic hematuria Intake Note: New patient presents today for initial visit for microscopic hematuria Urology Medication:None Blood Thinner:None Antibiotic Allergies: PVR:18ml Allergies buspirone (From BUSPAR) Allergy (Intermediate, Verified 12/06/24 13:58) TACHYCARDIA fluoxetine (From PROZAC) Allergy (Intermediate, Verified 12/06/24 13:58) FACIAL NEURALGIA meloxicam Allergy (Unknown, Verified 12/06/24 13:58) Hives Medication List - Last Reconciled 12/06/24 by KEYONA VacaP- cholecalciferol (vitamin D3) 50 mcg PO DAILY diclofenac sodium 50 mg PO BID hydrocodone-homatropine 5-1.5 mg/5 mL 5 mL PO Q4-6H PRN ibuprofen 800 mg PO Q8H PRN olanzapine 5 mg PO BEDTIME oxybutynin chloride ER 10 mg PO DAILY 30 days tramadol 50 mg PO Q8H PRN zolpidem 10 mg PO BEDTIME PRN HPI Comments Details: Jaja is a pleasant 59-year-old Brazilian-speaking female patient of Dr. Pete Mcguire. She has a past medical history of urinary incontinence, hypercholesteremia, depression, hypertension, and HIV. She presents to the office today as a new patient for urinary incontinence as well as microscopic hematuria in the setting of nicotine dependence. In discussion with the patient today she reports having follow-up with her PCP in recommendations were made for urology referral. When asked she reports a longstanding history of mixed urinary incontinence however feels this is becoming more bothersome. She reports utilizing approximately 3 Imelda pads per day. In office urinalysis results reviewed with the patient today trace microscopic hematuria. We did discussed potential causes of microscopic hematuria as well as further workup in risks and benefits of these interventions. We also discussed further treatment options of mixed urinary incontinence. When asked she does report a 14 year smoking history. She reports she typically smokes 1 pack of cigarettes every other day. She denies any known workplace chemical exposures. She denies visible/gross hematuria, dysuria, foul smelling urine, changes to urinary stream, flank pain, fever, and or chills. She discusses her ongoing issues with anxiety and has been working with her therapist and feels this has been helpful. All questions were answered. She otherwise offers no other issues or concerns at this time. [facility] Medical History Urinary incontinence Hypercholesteremia Depression Hypertension HIV (human immunodeficiency virus infection) Surgical History Hx of colonoscopy Family History Mother HTN (hypertension) High cholesterol Sister HTN (hypertension) Social History Alcohol intake: never Patient Tobacco Use Status: Current everyday Tobacco user Review of Systems Const All systems reviewed & are unremarkable except as noted in HPI and below Physical Exam Const General: cooperative, healthy appearing, comfortable, no acute distress, well developed, alert and awake Orientation/consciousness: patient oriented x3 Limitations: language barrier HEENT Head: Yes normal to inspection, Yes normocephalic and Yes atraumatic Ears: hearing grossly normal bilaterally Eyes General: appearance normal, both eyes and all related structures Neck Neck: Yes normal visual inspection and Yes trachea midline Chest Chest palpation & inspection: normal inspection of the chest Resp Effort & Inspection: normal respiratory effort and able to speak in complete sentences Cardio Rate: regular rate GI Inspection: Yes normal to inspection General: Yes no CVA tenderness Back/Spine/Pelvis Back: no CVA tenderness Skin General skin exam: no rashes or lesions noted Neuro General: patient oriented x3 Extrem General: Yes normal to inspection Psych Appearance: grossly normal and well kempt Mental Status: mental status grossly normal Speech and movement: Normal speech and movement present and Clear speech present Affect: normal affect Attitude: cooperative Thought process: Normal thought process present Thought content: Normal thought content present Insight: Fair insight present (Psych) Judgement: Fair judgement present (Psych) Results AMB Urinalysis, Automated UA Leukoctes 70 Malcolm/uL Last Edit by Porsha Cisse on 12/06/24 16:39 UA Nitrite Negative Last Edit by Porsha Cisse on 12/06/24 16:39 UA Urobilinogen 17 mg/dL Last Edit by Porsha Cisse on 12/06/24 16:39 UA Protein 0.3 mg/dL Last Edit by Porsha Cisse on 12/06/24 16:39 UA pH 5.5 Last Edit by Porsha Cisse on 12/06/24 16:39 UA Blood 10 Carlos/uL Last Edit by Porsha Cisse on 12/06/24 16:39 UA Specific [place] 1.020 Last Edit by Porsha Cisse on 12/06/24 16:39 UA Ketone Positive Last Edit by Porsha Cises on 12/06/24 16:39 UA Bilirubin 35 mg/dL Last Edit by Porsha Cisse on 12/06/24 16:39 UA Glucose 0 mg/dL Last Edit by Porsha Cisse on 12/06/24 16:39 Results Reviewed Results Reviewed: Laboratory Last Values Urine pH (Auto) 5.5 12/06/24 16:06 Specific [place] (Auto) 1.020 12/06/24 16:06 Urine Protein (Auto) 0.3 mg/dL 12/06/24 16:06 Glucose (UA)(Auto) 0 mg/dL 12/06/24 16:06 Urine Ketones (Auto) Positive 12/06/24 16:06 Urine Blood (Auto) 10 Carlos/uL 12/06/24 16:06 Urine Nitrite (Auto) Negative 12/06/24 16:06 Urine Bilirubin (Auto) 35 mg/dL 12/06/24 16:06 Urine Urobilinogen (Auto) 17 mg/dL 12/06/24 16:06 Leukocyte Esterase (Auto) 70 Malcolm/uL 12/06/24 16:06 Assessment & Plan Assessment & Plan (1) Microhematuria: Code(s): R31.29 - Other microscopic hematuria Category: Medical (2) Urinary incontinence: Code(s): R32 - Unspecified urinary incontinence Category: Medical (3) Nicotine dependence: Code(s): F17.200 - Nicotine dependence, unspecified, uncomplicated Category: Medical Plan In office urinalysis results reviewed with the patient today; as noted above; will send for urine cytology. PVR 18 mL. Start oxybutynin as discussed and prescribed. We did discussed further treatment options of mixed urinary incontinence as well as microscopic hematuria; we discussed potential causes for these urological conditions. All questions were answered. We discussed the importance of limiting/quitting nicotine dependence for overall health and well-being. Information provided regarding in office urodynamics as well as in office cystoscopy Will obtain CT urogram for further assessment evaluation. BUN and creatinine ordered for imaging. Follow-up in office cystoscopy in 1-3 months with imaging, labs, and PVR to be completed prior; or sooner with any issues, concerns, and or questions. Orders: Orders CT urogram Today R31.0 - Gross hematuria Blood Urea Nitrogen Today R39.15 - Urgency of urination Urine Cytology Today R31.29 - Other microscopic hematuria Creatinine Today R39.15 - Urgency of urination AMB Urinalysis Automated Today Z13.9 - Encounter for screening, unspecified AMB Post Void Residual by ultrasound Today R32 - Unspecified urinary incontinence Medications: New oxybutynin chloride ER 10 mg PO DAILY 30 tabs 3RF 30 days N32.81 - Overactive bladder Patient Instructions: The patient had an opportunity to ask questions regarding the treatment plan. All questions were answered. Physical exam, labs, and imaging were discussed and reviewed in detail. As well as risks, benefits, and discussion of treatment choices. No major barriers to understanding were identified. The patient expressed understanding and agreement with the above treatment plan. The patient was made aware they should contact our office by phone for worsening of their current condition, the appearance of new symptoms, or with any questions or concerns. Compliance is encouraged with any medications and follow up testing that is ordered. It is a privilege to be allowed the opportunity to participate in? your urological care.? Again, if you have any questions or concerns If you have any questions or concerns please do not hesitate to contact me. The office is [phone]. This note is constructed using voice recognition software. While every effort has been made to ensure accuracy adolescent counselor errors may have been included. Yours sincerely, LYDIA Vaca Coding Level of Care Code New Pt Level 4 ([address]293) Diagnoses Microhematuria R31.29 Urinary incontinence R32 Nicotine dependence F17.200
== END 2024-12-06 14:02 | disposition home or self-care (01) ==
PROVIDERS: PCP Student in an Organized Health Care Education/Training Program; Visit Provider Nurse Practitioner Family
DX: R31.29 Other microscopic hematuria (principal); R32 Unspecified urinary incontinence; F17.200 Nicotine dependence, unspecified, uncomplicated
CPT/HCPCS: 99204

== ENCOUNTER 2025-01-24 12:35 | Outpatient (REF) | payer MEDICAID, SELFPAY ==
--- OUTSIDE RECORDS SUMMARY | 2024-08-06 10:00 | XMS_ITS ---
Author Organization [facility] Address [address] [place] [phone] Care Team Providers Care Veterinary Laboratory Technician Name Role Phone ColungaTata Dupree Unavailable [phone] Encounters Encounter Location Date Provider Diagnosis [facility] [address] [place] [phone] 08/06/2024 Tata Ziegler Plan Of Treatment No Information Progress Notes * Jaja FARLEY MDOB:1965 (59 yo F)Acc No.[id number]:08/06/2024 Case Management Patient: Jaja MORA Provider: Mitesh Ziegler :1965 A ge:58 Y S ex:Female Date:08/06/2024 Phone: Address:[address] [place] [address] Subjective: * Chief Complaints: * * Medical History: Objective: Assessment: Plan: * Treatment: * Images: Billing Information: * Visit Code: * Procedure Codes: Care Plan Details* * Electronic signature of Ramiro Ziegler on 01/24/2025 at 01:45 PM EDT Sign off status: Pending * Provider: Mitesh Ziegler Date: 0 08/06/2024 Generated for Timothy strickland/Joe/eTbekasmitting on: 0 01/24/2025 01:45 PM EDT
--- NOTE | ~2025-01-24 | CT_ITS ---
EXAMINATION: CT ABDOMEN AND PELVIS WITHOUT AND WITH CONTRAST CLINICAL INFORMATION: R31.0 - Gross hematuria COMPARISON: May 18, 2019 CT L-spine TECHNIQUE: Noncontrast CT of the abdomen and pelvis is performed followed by split bolus contrast-enhanced images using 85 mL Omnipaque 350 contrast. Postcontrast imaging is performed during the combined nephrogram and excretion phase. Sagittal and coronal reformatted images were obtained on the technologist's workstation for both the precontrast and postcontrast phases. This CT examination was performed using dose optimization techniques as appropriate, variously including the following: *Automated exposure control *Adjustment of mA and/or kV according to patient size (this includes techniques or standardized protocols for targeted exams where dose is matched to indication/reason for exam; i.e. extremities or head) *Use of iterative reconstruction technique FINDINGS: LUNG BASES: The visualized lung bases are unremarkable. LIVER, GALLBLADDER, AND BILIARY TREE: The liver is normal in size, shape, and attenuation. No focal hepatic lesion or biliary ductal dilatation is present. Gallbladder surgically absent. There are clips in the gallbladder fossa. There is mild extra hepatic bile duct dilation. PANCREAS: Unremarkable. SPLEEN: Unremarkable. ADRENAL GLANDS: Unremarkable. KIDNEYS AND URETERS: The kidneys are normal in size, shape, and attenuation. No hydronephrosis, hydroureter, or calculi seen. No perinephric stranding. BLADDER: Unremarkable. GASTROINTESTINAL TRACT: The small and large bowel are unremarkable. The appendix is unremarkable. ABDOMINAL WALL: Paraumbilical hernia passes through anterior dehiscence measuring 18 mm diameter. The hernia sac measures 25 x 27 mm and contains adipose tissue that is slightly increased in density, possibly greater omentum. LYMPH NODES: Normal. VASCULAR: There are vascular calcifications. PELVIC VISCERA: Uterus and ovaries are unremarkable. OSSEUS STRUCTURES: There are Schmorl's nodes involving inferior endplates of T11, T12, L1 are and L5. There is endplate sclerosis in the inferior endplate of L4 and L5. There is also vacuum phenomenon at L4-5 and L5-S1. There is moderate degenerative change the right hip joint with axial joint space narrowing, marginal osteophytes, and degenerative cystic change in the superior lateral hip joint. There is moderate degenerative change in the pubic symphysis joint with cortical stenosis. CT/CT urogram IMPRESSION: Unremarkable kidneys. No stones and no hydronephrosis. Periumbilical hernia contains a 2.5 cm hernia sac filled with adipose tissue, possibly greater omentum. Multilevel degenerative disc disease and moderate osteoarthritis of the right hip joint Cholecystectomy. Electronically signed by: Gasper Gomez MD 01/24/2025 02:23 PM EDT
--- OUTSIDE RECORDS SUMMARY | 2025-01-24 13:45 | XMS_ITS | Patient Health Record ---
Author Organization [facility] Address [address] [place] [address] Care Team Providers Care National Secretary Name Role Phone Tata Ziegler Unavailable Reason For Referral No Information Encounters Encounter Location Date Provider Diagnosis [facility] [address] [place], [place] [phone] 02/27/2024 Tata Ziegler Plan Of Treatment No Information Insurance Providers Payer Name Payer Address Payer Phone Subscriber Number Group Number Insured Name Patient Relationship to Insured Coverage Start Date Coverage End Date Insurance - None Need to apply for insurance [id number] [place] [address] Jaja Booker Self - patient is the insured
[2025-01-24 17:13] LABS: Creatinine POC 1.0 mg/dL (0.5-1.4); GFR POC 58
== END 2025-01-24 12:36 | disposition home or self-care (01) ==
LOC: HO.CT 12:35
PROVIDERS: PCP Registered Nurse; Visit Provider Nurse Practitioner Family
DX: R31.0 Gross hematuria (principal)
CPT/HCPCS: 74178; 82565

== ENCOUNTER → 2025-01-24 12:37 | Outpatient (BNV) | payer MEDICAID, SELFPAY | PROVIDERS: PCP Registered Nurse; Visit Provider Radiology Diagnostic Radiology | DX: K42.9 Umbilical hernia without obstruction or gangrene (principal); M16.11 Unilateral primary osteoarthritis, right hip; Z90.49 Acquired absence of other specified parts of digestive tract | CPT/HCPCS: 74178 ==

== ENCOUNTER 2025-02-03 13:22 | Outpatient (REF) | payer MEDICAID, SELFPAY | END 2025-02-03 13:23 | disposition home or self-care (01) | LOC: HO.LAB 13:22 | PROVIDERS: PCP Student in an Organized Health Care Education/Training Program; Visit Provider Nurse Practitioner Family | DX: N30.11 Interstitial cystitis (chronic) with hematuria (principal); N32.81 Overactive bladder; F17.210 Nicotine dependence, cigarettes, uncomplicated; R32 Unspecified urinary incontinence; R39.15 Urgency of urination | CPT/HCPCS: 52000; 88112; 99212 ==

== ENCOUNTER 2025-02-03 13:22 | Outpatient (AMB) | payer MEDICAID, SELFPAY ==
--- NOTE | 2025-02-03 13:38 | MHC.OFFVIS ---
Intake Visit Reasons: cysto/CT/labs Intake Note: patient presents today for: cysto/CT/labs urology medications: oxybutynin chloride blood thinners: none CT done: 01/24/25 [employer] Required: Yes Accompanied by: Self / Same As Patient Allergies buspirone (From BUSPAR) Allergy (Intermediate, Verified 02/03/25 14:47) TACHYCARDIA fluoxetine (From PROZAC) Allergy (Intermediate, Verified 02/03/25 14:47) FACIAL NEURALGIA meloxicam Allergy (Unknown, Verified 02/03/25 14:47) Hives Medication List - Last Reconciled 02/03/25 by KEYONA VacaP- cholecalciferol (vitamin D3) 50 mcg PO DAILY diclofenac sodium 50 mg PO BID estradiol 0.01%(0.1mg/gram) (Estrace) 1 g vaginal 3XW 90 days hydrocodone-homatropine 5-1.5 mg/5 mL 5 mL PO Q4-6H PRN ibuprofen 800 mg PO Q8H PRN mirabegron ER (Myrbetriq) 25 mg PO DAILY 30 days olanzapine 5 mg PO BEDTIME tramadol 50 mg PO Q8H PRN zolpidem 10 mg PO BEDTIME PRN HPI Comments Details: Jaja is a pleasant 59-year-old Armenian-speaking female patient of Dr. Pete Mcguire. She has a past medical history of urinary incontinence, hypercholesteremia, depression, hypertension, and HIV. She presents to the office today for follow-up. Of note, patient was seen approximately 2 months ago as a new patient for urinary incontinence as well as microscopic hematuria in the setting of nicotine dependence at which time a CT urogram and urine cytology was ordered for further assessment evaluation. The patient was also started on 10 mg of oxybutynin for lower urinary tract symptoms she had been experiencing. In discussion with the patient today she reports initially she had improvement in urinary symptoms however most recently has continue to experience urinary urgency, urinary frequency, as well as mixed urinary incontinence. Recent CT urogram results were reviewed 01/20 the kidneys are normal in size, shape, and attenuation. No hydronephrosis, hydroureter, or calculi seen. No perinephric stranding bilaterally. The bladder is unremarkable per radiology report. Urine cytology 12/20 Negative for high-grade urothelial carcinoma. When asked she does report a 14 year smoking history. She reports she typically smokes 1 pack of cigarettes every other day. She denies any known workplace chemical exposures. She denies visible/gross hematuria, dysuria, foul smelling urine, changes to urinary stream, flank pain, fever, and or chills. In office cystoscopy was performed urethra does appear atrophic with mild irritation. Bladder with grade 1 trabeculations otherwise no bladder tumors noted. All questions were answered. She otherwise offers no other issues or concerns at this time. [facility] Medical History Urinary incontinence Hypercholesteremia Depression Hypertension HIV (human immunodeficiency virus infection) Surgical History Hx of colonoscopy Family History Mother HTN (hypertension) High cholesterol Sister HTN (hypertension) Social History Alcohol intake: never Patient Tobacco Use Status: Current everyday Tobacco user Review of Systems Const All systems reviewed & are unremarkable except as noted in HPI and below Physical Exam Const General: cooperative, healthy appearing, comfortable, no acute distress, well developed, alert and awake Orientation/consciousness: patient oriented x3 Limitations: language barrier HEENT Head: Yes normal to inspection, Yes normocephalic and Yes atraumatic Ears: hearing grossly normal bilaterally Eyes General: appearance normal, both eyes and all related structures Neck Neck: Yes normal visual inspection and Yes trachea midline Chest Chest palpation & inspection: normal inspection of the chest Resp Effort & Inspection: normal respiratory effort and able to speak in complete sentences Cardio Rate: regular rate GI Inspection: Yes normal to inspection General: Yes no CVA tenderness Back/Spine/Pelvis Back: no CVA tenderness Skin General skin exam: no rashes or lesions noted Neuro General: patient oriented x3 Extrem General: Yes normal to inspection Psych Appearance: grossly normal and well kempt Mental Status: mental status grossly normal Speech and movement: Normal speech and movement present and Clear speech present Affect: normal affect Attitude: cooperative Thought process: Normal thought process present Thought content: Normal thought content present Insight: Fair insight present (Psych) Judgement: Fair judgement present (Psych) Office Procedures Cystoscopy Consent Discussed risk and benefit or proposed procedure with the patient. Information consent for procedure given to the patient. Discussed technical aspects, risks, benefits and alternatives in full. Addressed all of the patient's questions and concerns regarding the procedure. The patient demonstrated knowledge and understanding. They wish to proceed with this procedure. Preparation The patient was prepped in the usual manner. A ophthalmologist retina specialist was present and in the room. Genitalia was prepped with betadine solution in a sterile manner. Lidocaine Jelly 2% was placed into the urethra and 16Fr flexible cystoscope was inserted into the meatus after adequate lubrication. Procedure Meatus normal position Urethra normal Bladder examination with retroflexion of cystoscope Bladder Orifices normal shape and position Trigone normal Bladder Capacity moderate Trabeculations mild/ Grade 1 Cellule Formation none Diverticulum Formation none Mucosal Erythema none Bladder Tumor none Patient tolerated procedure well [id number] DISPOSABLE SCOPE URO-G FLEXIBLE SCOPE Procedure code (CPT) selection complete Office Meds lidocaine HCl 2 % mucosal jelly in applicator Performing Provider: LYDIA Vaca Performing Location: [facility] Administered by: Mony Herrera RN on 02/03/25 13:58 Dose Route Admin Location Dispensed Lot Number Expiration Date [employer] 10 mL intra-urethral 10 mL nitrofurantoin monohydrate/macrocrystals 100 mg capsule Performing Provider: LYDIA Vaca Performing Location: [facility] Administered by: Mony Herrera RN on 02/03/25 13:58 Dose Route Admin Location Dispensed Lot Number Expiration Date [employer] 100 mg PO 1 cap Results Reviewed Results Reviewed: Date of Service: 01/24/25 Procedure(s): CT urogram FINDINGS: LUNG BASES: The visualized lung bases are unremarkable. LIVER, GALLBLADDER, AND BILIARY TREE: The liver is normal in size, shape, and attenuation. No focal hepatic lesion or biliary ductal dilatation is present. Gallbladder surgically absent. There are clips in the gallbladder fossa. There is mild extra hepatic bile duct dilation. PANCREAS: Unremarkable. SPLEEN: Unremarkable. ADRENAL GLANDS: Unremarkable. KIDNEYS AND URETERS: The kidneys are normal in size, shape, and attenuation. No hydronephrosis, hydroureter, or calculi seen. No perinephric stranding. BLADDER: Unremarkable. GASTROINTESTINAL TRACT: The small and large bowel are unremarkable. The appendix is unremarkable. ABDOMINAL WALL: Paraumbilical hernia passes through anterior dehiscence measuring 18 mm diameter. The hernia sac measures 25 x 27 mm and contains adipose tissue that is slightly increased in density, possibly greater omentum. LYMPH NODES: Normal. VASCULAR: There are vascular calcifications. PELVIC VISCERA: Uterus and ovaries are unremarkable. OSSEUS STRUCTURES: There are Schmorl's nodes involving inferior endplates of T11, T12, L1 are and L5. There is endplate sclerosis in the inferior endplate of L4 and L5. There is also vacuum phenomenon at L4-5 and L5-S1. There is moderate degenerative change the right hip joint with axial joint space narrowing, marginal osteophytes, and degenerative cystic change in the superior lateral hip joint. There is moderate degenerative change in the pubic symphysis joint with cortical stenosis. IMPRESSION: Unremarkable kidneys. No stones and no hydronephrosis. Periumbilical hernia contains a 2.5 cm hernia sac filled with adipose tissue, possibly greater omentum. Multilevel degenerative disc disease and moderate osteoarthritis of the right hip joint Cholecystectomy. Assessment & Plan Assessment & Plan (1) Microhematuria: Code(s): R31.29 - Other microscopic hematuria Category: Medical (2) Nicotine dependence: Code(s): F17.200 - Nicotine dependence, unspecified, uncomplicated Category: Medical (3) Urinary incontinence: Code(s): R32 - Unspecified urinary incontinence Category: Medical Plan In office urinalysis results reviewed with the patient today; as noted above; will send for urine cytology. Recent CT urogram results reviewed with the patient today; as noted above. Recent urine cytology results reviewed with the patient today; as noted above. In office cystoscopy was performed; atrophy due to the urethra; grade 1 trabeculations noted; no bladder tumors noted. Stop oxybutynin. Start Myrbetriq Start Estrace cream as discussed and prescribed. We did discussed potential causes of lower urinary tract symptoms patient is experiencing as well as further treatment options and risks and benefits of these treatment options. We also discussed potential near future in office urodynamics. We discussed the importance of quitting/limiting nicotine dependence for overall health and well-being. Follow-up in 1-3 months with [facility]; or sooner with any issues, concerns, and or questions. Orders: Orders AMB Cystoscopy Today R31.29 - Other microscopic hematuria, R32 - Unspecified urinary incontinence Urine Cytology Today F17.200 - Nicotine dependence, unspecified, uncomplicated, R31.29 - Other microscopic hematuria Medications: New estradiol 0.01%(0.1mg/gram) (Estrace) Apply a pea-sized amount to urethra 3 times per week 1 g vaginal 3XW 42.5 grams 3RF 90 days mirabegron ER (Myrbetriq) 25 mg PO DAILY 30 tabs 3RF 30 days N30.10 - Interstitial cystitis (chronic) without hematuria, N32.81 - Overactive bladder, R35.1 - Nocturia, R39.15 - Urgency of urination Discontinued oxybutynin chloride ER Discontinued Reason: Doctor's Order 10 mg PO DAILY 30 days 30 tabs 3RF N32.81 - Overactive bladder Patient Instructions: The patient had an opportunity to ask questions regarding the treatment plan. All questions were answered. Physical exam, labs, and imaging were discussed and reviewed in detail. As well as risks, benefits, and discussion of treatment choices. No major barriers to understanding were identified. The patient expressed understanding and agreement with the above treatment plan. The patient was made aware they should contact our office by phone for worsening of their current condition, the appearance of new symptoms, or with any questions or concerns. Compliance is encouraged with any medications and follow up testing that is ordered. It is a privilege to be allowed the opportunity to participate in? your urological care.? Again, if you have any questions or concerns If you have any questions or concerns please do not hesitate to contact me. The office is [phone]. This note is constructed using voice recognition software. While every effort has been made to ensure accuracy accounts receivable executive errors may have been included. Yours sincerely, LYDIA Vaca Coding Level of Care Code Est Pt Level 4 (90399) Diagnoses Microhematuria R31.29 Nicotine dependence F17.200 Urinary incontinence R32 CPT Codes Cystoscopy - CPT: [id number] ([id number])
== END 2025-02-03 14:21 | disposition home or self-care (01) ==
LOC: HO.HUSH 13:23
PROVIDERS: PCP Student in an Organized Health Care Education/Training Program; Visit Provider Nurse Practitioner Family
DX: R31.29 Other microscopic hematuria (principal); F17.200 Nicotine dependence, unspecified, uncomplicated; R32 Unspecified urinary incontinence
CPT/HCPCS: 52000; 99214

== ENCOUNTER 2025-02-21 09:53 | Outpatient (REF) | payer MEDICAID, SELFPAY ==
--- OUTSIDE RECORDS SUMMARY | 2024-08-06 10:00 | XMS_ITS ---
Author Organization [facility] Address [address] [place] [phone] Care Team Providers Care Managed Care Manager Name Role Phone ColungaTata Dupree Unavailable Encounters Encounter Location Date Provider Diagnosis [facility] [address] [place] [phone] 08/06/2024 Tata Ziegler Plan Of Treatment No Information Progress Notes * Jaja FARLEY MDOB:1965 (59 yo F)Acc No.[id number]:08/06/2024 Case Management Patient: Jaja MOAR Provider: Mitesh Ziegler :1965 A ge:58 Y S ex:Female Date:08/06/2024 Phone: Address:[address] [place] [address] Subjective: * Chief Complaints: * * Medical History: Objective: Assessment: Plan: * Treatment: * Images: Billing Information: * Visit Code: * Procedure Codes: Care Plan Details* * Electronic signature of Ramiro Ziegler on 02/21/2025 at 08:26 AM EDT Sign off status: Pending * Provider: Mitesh Ziegler Date: 0 08/06/2024 Generated for Timothy strickland/Joe/eTbekasmsean on: 1 08:26 AM EDT
--- OUTSIDE RECORDS SUMMARY | 2025-02-21 11:27 | XMS_ITS | Patient Health Record ---
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
[2025-02-21 12:09] LABS: Gamma Glutamyl Transpeptidase 29 U/L (7-33)
[2025-02-21 12:17] LABS: Alanine Aminotransferase 16 U/L (0-31); Albumin Level 4.7 g/dL (3.5-5.0); Alkaline Phosphatase 123 U/L (39-117); Anion Gap 10 (12-20); Aspartate Amino Transferase 20 U/L (5-31); Blood Urea Nitrogen 16 mg/dL (9-16); Calcium 10.1 mg/dL (8.4-10.2); Carbon Dioxide 27 mmol/L (22-29); Chloride 106 mmol/L (96-108); Estimated Glomerular Filt Rate > 60; Potassium 4.3 mmol/L (3.3-5.1); Sodium 139 mmol/L (135-145); Total Protein 8.5 g/dL (6.5-8.0)
== END 2025-02-21 09:54 | disposition home or self-care (01) ==
LOC: HO.HHCL 09:53
PROVIDERS: Nurse Practitioner Family; PCP Registered Nurse; Visit Provider Student in an Organized Health Care Education/Training Program
DX: R74.8 Abnormal levels of other serum enzymes (principal); Z21 Asymptomatic human immunodeficiency virus [HIV] infection status
CPT/HCPCS: 36415; 80053; 82977; 84075

== ENCOUNTER 2025-03-22 13:41 | Outpatient (REF) | payer MEDICAID, SELFPAY ==
--- OUTSIDE RECORDS SUMMARY | 2024-08-06 09:00 | XMS_ITS ---
Author Organization [facility] Address [address] [place] [id number] Care Team Providers Care Double Corner Cutter Name Role Phone ColungaTata Dupree Unavailable Encounters Encounter Location Date Provider Diagnosis [facility] [address] [place] [phone] 08/06/2024 Tata Ziegler Plan Of Treatment No Information Progress Notes * Jaja FARLEY MDOB:1965 (59 yo F)Acc No.[id number]:08/06/2024 Case Management Patient: Jaja MORA Provider: Mitesh Ziegler :1965 A ge:58 Y S ex:Female Date:08/06/2024 Phone: Address:[address] [place] [address] Subjective: * Chief Complaints: * * Medical History: Objective: Assessment: Plan: * Treatment: * Images: Billing Information: * Visit Code: * Procedure Codes: Care Plan Details* * Electronic signature of Ramiro Ziegler on 03/22/2025 at 05:32 PM EST Sign off status: Pending * Provider: Mitesh Ziegler Date: 0 08/06/2024 Generated for Timothy strickland/Joe/Felipasmsean on: 1 05/22/2024 05:32 PM EST
--- OUTSIDE RECORDS SUMMARY | 2025-03-22 17:32 | XMS_ITS | Patient Health Record ---
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
[2025-03-25 09:06] LABS: Alphahydroxymidazolam,GCMS Ur NEGATIVE; Alphahydroxytriazolam, GCMS Ur NEGATIVE; Alprazolam, GCMS Urine NEGATIVE; Lorazepam GCMS Urine 370; Nordiazepam, GCMS Urine NEGATIVE; Oxazepam, GCMS Urine NEGATIVE; Temazepam, GCMS Urine NEGATIVE
[2025-03-25 09:07] LABS: Aminoclonazepam, GCMS Urine NEGATIVE; Flurazepam Metabolite,GCMS Ur NEGATIVE
== END 2025-03-22 13:42 | disposition home or self-care (01) ==
LOC: HO.HHCLNP 13:41
PROVIDERS: Visit Provider Registered Nurse
DX: M48.061 Spinal stenosis, lumbar region without neurogenic claudication (principal)
CPT/HCPCS: 80346